=== PATIENT | female | born 1955 | race Caucasian/White ===

== ENCOUNTER → 2017-02-25 | Outpatient (CLI) | payer OTHER ==
[~2017-02-25] MED LIST: ALBU1AER9 INH; CALC500C3 PO; CARV12.5 PO; CMD/25 PO; CMD5 PO; CYAN500T PO; ERGO500037 PO; FERR325T PO; HYDR-3983 PO; IMD/2 PO; INSUINJ14 SC; INSUINJ4 SQ; LEVO200T PO; NRN300 PO; NTRGSL/4 UT; OMEP20CA59 PO; OXYB15TA12 PO; TELM80TA4 PO; VENL150T33 PO
[2017-02-25 12:38] LABS: ESTIMATED AVERAGE GLUCOSE 183 mg/dl; HA1C FLAG Normal (Normal)
[2017-02-25 12:58] LABS: ALT/SGPT 25 U/L (12-78); BLOOD UREA NITROGEN 35 mg/dl (7-18); BUN/CREATININE RATIO 15.7 (10-20); CALCIUM 8.4 mg/dl (8.5-10.1); CARBON DIOXIDE 26 mmol/L (21-32); CHLORIDE 108 mmol/L (98-107); GLUCOSE 62 mg/dl (70-99); POTASSIUM 3.5 mmol/L (3.5-5.1); SODIUM 144 mmol/L (136-145)
[2017-02-25 13:09] LABS: ALB/GLOB RATIO 0.8 (0.9-2); ALKALINE PHOSPHATASE 115 U/L (45-117); AST/SGOT 12 U/L (15-37)
[2017-02-25 14:29] LABS: LYME DISEASE AB IGG NEG (NEG)
[2017-02-25 14:33] LABS: LYME DISEASE AB IGM NEG (NEG)
== END | disposition home or self-care (01) ==
LOC: C.LABBFT 10:59
PROVIDERS: ATTEND Nurse Practitioner
DX: E78.5 Hyperlipidemia, unspecified (principal); E11.9 Type 2 diabetes mellitus without complications; R53.83 Other fatigue

== ENCOUNTER → 2017-03-18 | Outpatient (CLI) | payer OTHER ==
--- NOTE | 2017-03-18 08:05 | DIAGNOSTIC IMAGING REPORT ---
EXAMINATION: RENAL ULTRASOUND CLINICAL HISTORY: Hypertension, chronic kidney disease. Vitamin D deficiency. COMPARISON STUDY: 12/27/2013 FINDINGS: The right kidney measures 10.0 cm. The left kidney measures 7.6 cm. There is no evidence of hydronephrosis. There is upper pole right renal cortical scarring. The left kidney demonstrates renal cortical thinning. No bladder abnormalities are visualized. Bilateral ureteral jets were visualized. IMPRESSION : 1. Progressive left renal atrophy with progressive cortical thinning 2. Upper pole right renal cortical scarring 3. No evidence of hydronephrosis Electronically signed by: Radu Ortega M.D. 03/18/2017 8:03 AM Dictated Date/Time: 03/18/2017 8:01 AM
== END | disposition home or self-care (01) ==
LOC: C.ULTR 07:28
PROVIDERS: ATTEND Internal Medicine Nephrology
DX: E11.9 Type 2 diabetes mellitus without complications (principal); E55.9 Vitamin D deficiency, unspecified; D64.9 Anemia, unspecified; I10 Essential (primary) hypertension; N18.3 Chronic kidney disease, stage 3 (moderate); R80.9 Proteinuria, unspecified

== ENCOUNTER → 2017-04-01 | Outpatient (CLI) | payer OTHER ==
[2017-04-01 17:35] LABS: HEMATOCRIT 34.2 % (37-47); MEAN CELL VOLUME 86.4 fL (80-100); MEAN CORPUSCULAR HEMOGLOBIN 25.5 pg (25-34); MEAN CORPUSCULAR HGB CONC 29.5 g/dl (32-36); MEAN PLATELET VOLUME 9.4 fL (7.4-10.4); PLATELET COUNT 439 K/uL (130-400); RED BLOOD COUNT 3.96 M/uL (4.2-5.4); WHITE BLOOD COUNT 8.38 K/uL (4.8-10.8)
[2017-04-01 17:43] LABS: URINE APPEARANCE CLOUDY (CLEAR); URINE BILIRUBIN NEG (NEG); URINE COLOR YELLOW; URINE EPITHELIAL CELL AUTO >30 /lpf (0-5); URINE NITRITE POS (NEG); URINE PH 5.5 (4.5-7.5); URINE SPECIFIC GRAVITY 1.024 (1.000-1.030); UROBILINOGEN NEG (NEG)
[2017-04-01 17:48] LABS: MANUAL MICROSCOPIC REQUIRED? NO; REVIEW REQ? YES
[2017-04-01 17:58] LABS: BLOOD UREA NITROGEN 39 mg/dl (7-18); BUN/CREATININE RATIO 17.9 (10-20); CALCIUM 8.2 mg/dl (8.5-10.1); CARBON DIOXIDE 26 mmol/L (21-32); CHLORIDE 110 mmol/L (98-107); GLUCOSE 163 mg/dl (70-99); PHOSPHORUS 3.9 mg/dl (2.5-4.9); POTASSIUM 4.5 mmol/L (3.5-5.1); SODIUM 143 mmol/L (136-145)
[2017-04-01 18:07] LABS: URINE PROTIEN/CREAT RATIO 2.1 (0-0.2); URINE TOTAL PROTEIN 254.6 mg/dl (0-11.9)
== END | disposition home or self-care (01) ==
LOC: C.LABBFT 11:48
PROVIDERS: ATTEND Internal Medicine Nephrology
DX: I12.9 Hypertensive chronic kidney disease with stage 1 through stage 4 chronic kidney disease, or unspecified chronic kidney disease (principal); E55.9 Vitamin D deficiency, unspecified; E11.9 Type 2 diabetes mellitus without complications; D64.9 Anemia, unspecified; R80.9 Proteinuria, unspecified; N18.3 Chronic kidney disease, stage 3 (moderate)

== ENCOUNTER → 2017-04-26 | Outpatient (CLI) | payer OTHER ==
[2017-04-26 12:21] LABS: BASO % 1.2 %; BASO ABS # 0.11 K/uL (0-0.2); EOS % 1.8 %; HEMATOCRIT 35.2 % (37-47); IG% 0.2 %; LYMPH % 22.2 %; LYMPH ABS # 1.97 K/uL (1.2-3.4); MEAN CELL VOLUME 82.8 fL (80-100); MEAN CORPUSCULAR HEMOGLOBIN 25.2 pg (25-34); MEAN CORPUSCULAR HGB CONC 30.4 g/dl (32-36); MEAN PLATELET VOLUME 9.9 fL (7.4-10.4); MONO % 5.4 %; NEUT % 69.2 %; PLATELET COUNT 371 K/uL (130-400); RED BLOOD COUNT 4.25 M/uL (4.2-5.4); WHITE BLOOD COUNT 8.89 K/uL (4.8-10.8)
[2017-04-26 12:34] LABS: BLOOD UREA NITROGEN 44 mg/dl (7-18); BUN/CREATININE RATIO 16.8 (10-20); CALCIUM 8.4 mg/dl (8.5-10.1); CARBON DIOXIDE 27 mmol/L (21-32); CHLORIDE 104 mmol/L (98-107); GLUCOSE 171 mg/dl (70-99); MAGNESIUM 2.3 mg/dl (1.8-2.4); POTASSIUM 4.1 mmol/L (3.5-5.1); SODIUM 140 mmol/L (136-145)
[2017-04-26 12:39] LABS: FERRITIN 12.5 ng/ml (8.0-388.0); PHOSPHORUS 4.8 mg/dl (2.5-4.9); TOTAL IRON BINDING CAPACITY 433 mcg/dl (250-450)
[2017-04-26 13:28] LABS: ANISOCYTOSIS PRESENT; COMPLETE YES; ECHINOCYTES 1+
== END | disposition home or self-care (01) ==
LOC: C.LABBFT 09:31
PROVIDERS: ATTEND Physician Assistant Medical
DX: R06.09 Other forms of dyspnea (principal); D64.9 Anemia, unspecified

== ENCOUNTER → 2017-04-27 | Outpatient (CLI) | payer OTHER ==
--- NOTE | 2017-04-27 10:52 | DIAGNOSTIC IMAGING REPORT ---
CHEST 2 VIEWS ROUTINE CLINICAL HISTORY: 61 years-old Female presenting with DYSPNEA ON EXERTION. TECHNIQUE: PA and lateral views of the chest were obtained. COMPARISON: 02/27/2016. FINDINGS: Atherosclerosis of aortic arch. Cardiac silhouette mildly enlarged. Apparent left basilar opacity, stable slightly increased from prior. No large pleural effusion or pneumothorax. Surgical clips project over the bilateral axillary. Osseous structures normal. Upper abdomen normal. IMPRESSION: 1. Apparent left basilar opacity may relate to prominent pericardial fat pad, however, the appearance is slightly more prominent than on prior exam. 2. Mild cardiomegaly. Electronically signed by: Sami Anthony M.D. 04/27/2017 10:50 AM Dictated Date/Time: 04/27/2017 10:46 AM
== END | disposition home or self-care (01) ==
LOC: C.RAD1850 10:27
PROVIDERS: ATTEND Internal Medicine
DX: R06.09 Other forms of dyspnea (principal); R91.8 Other nonspecific abnormal finding of lung field

== ENCOUNTER → 2017-05-03 | Outpatient (CLI) | payer OTHER ==
[2017-05-03 17:59] LABS: BLOOD UREA NITROGEN 38 mg/dl (7-18); BUN/CREATININE RATIO 15.9 (10-20); CALCIUM 7.9 mg/dl (8.5-10.1); CARBON DIOXIDE 25 mmol/L (21-32); CHLORIDE 110 mmol/L (98-107); CREATININE 2.37 mg/dl (0.60-1.20); GLUCOSE 126 mg/dl (70-99); POTASSIUM 4.2 mmol/L (3.5-5.1); SODIUM 143 mmol/L (136-145)
[2017-05-03 18:00] LABS: PHOSPHORUS 3.8 mg/dl (2.5-4.9)
== END | disposition home or self-care (01) ==
LOC: C.LABBFT 12:49
PROVIDERS: ATTEND Internal Medicine
DX: R06.09 Other forms of dyspnea (principal)

== ENCOUNTER → 2017-05-06 | Outpatient (CLI) | payer OTHER ==
[~2017-05-06] MED LIST changes: +ADVIN50/60 INH; +ALBINS/ INH; +ASCA500 PO; +ASPI81TA28 PO; +CLOP1TAB15 PO; +DOCU100C31 PO; +EZET10TA63 PO; +FOLI1TAB7 PO; +INSDGIPEN SC; +ISOS30TA35 PO; +LOSA100T65 PO; +MULT-506 PO; +NVLGI/PEN SQ; +OXYB15TA PO; +PANT40TA PO; +TORS20TA2 PO; +TRAMTAB5 PO; +VNTHFA/IN INH
--- NOTE | 2017-05-06 08:23 | DIAGNOSTIC IMAGING REPORT ---
(CHEST) THORAX WITHOUT CLINICAL HISTORY: R93.8 Abnormal chest x-ray-, left basilar opacity. SHORTNESS OF BREATH COMPARISON STUDY: Conventional radiographic study dated 04/27/2017 CT DOSE: 1013.81 mGy.cm TECHNIQUE: CT of the thorax was performed from the thoracic inlet to the lung bases. Images are reviewed in the axial, sagittal, and coronal planes. IV contrast was not administered for this examination. A dose lowering technique was utilized adhering to the principles of ALARA. FINDINGS: Thyroid: Imaged portions of the thyroid gland are normal in appearance. Thoracic aorta: The thoracic aorta is normal in course and caliber, noting standard 3 vessel arch anatomy. Heart: The heart is borderline enlarged. There is no pericardial effusion. Lungs and pleural spaces: There are small bilateral pleural effusions. There is a calcified granuloma within the left lower lobe. There are lingular atelectatic changes. There is subtle subpleural septal edema. There is no lobar consolidation. There is a 2.5 mm right middle lobe pulmonary nodule as visualized in image #[id number]. Mediastinum: There are mildly enlarged mediastinal lymph nodes. Subcarinal lymph nodes demonstrate calcifications. Mimi: There are calcified hilar nodes. Axilla: Postsurgical changes are present within both axilla. There is no pathologic adenopathy. Upper abdomen: There is a large ventral hernia containing portions of stomach and colon area Skeletal structures: There are no lytic or blastic osseous lesions. IMPRESSION: 1. Bilateral pleural effusions and mild subpleural septal edema. 2. Lingular atelectasis 3. No evidence of lobar consolidation 4. Mild mediastinal adenopathy 5. Large bowel containing ventral hernia Electronically signed by: Radu Ortega M.D. 05/06/2017 8:22 AM Dictated Date/Time: 05/06/2017 8:16 AM
== END | disposition home or self-care (01) ==
LOC: C.CTS 08:01
PROVIDERS: ATTEND Internal Medicine
DX: R93.8 Abnormal findings on diagnostic imaging of other specified body structures (principal); J90 Pleural effusion, not elsewhere classified; J98.11 Atelectasis; R59.0 Localized enlarged lymph nodes; K43.9 Ventral hernia without obstruction or gangrene

== ENCOUNTER 2017-05-09 02:29 | Inpatient (IN) | payer OTHER ==
[~2017-05-09] VITALS: Ht 160 cm; Wt 118.7 kg
[2017-05-09] VITALS (7 sets, daily range): BP systolic 146–182; BP diastolic 77–124; PULSE 63–99; TEMP 36.4–36.8; O2SAT 93–100; BMI 46.5
[~2017-05-09 02:29] MED LIST changes: -ADVIN50/60 INH; -ALBINS/ INH; -ASCA500 PO; -ASPI81TA28 PO; -CLOP1TAB15 PO; -DOCU100C31 PO; -EZET10TA63 PO; -FOLI1TAB7 PO; -INSDGIPEN SC; -ISOS30TA35 PO; -LOSA100T65 PO; -MULT-506 PO; -NVLGI/PEN SQ; -OXYB15TA PO; -PANT40TA PO; -TORS20TA2 PO; -TRAMTAB5 PO; -VNTHFA/IN INH
[2017-05-09] MEDS ORDERED: ALBUT/IPRATROP 3MG/0.5MG NEB 3 ML VIAL INH STA (03:09)
[2017-05-09] MEDS ORDERED: FENTANYL CITRATE INJ 50 MCG/1 ML 2 ML VIAL IV STA (03:09)
[2017-05-09 03:24] LABS: BASO % 0.9 %; BASO ABS # 0.09 K/uL (0-0.2); COMPLETE YES; EOS % 0.5 %; HEMATOCRIT 36.7 % (37-47); IG% 0.4 %; LYMPH % 13.3 %; LYMPH ABS # 1.31 K/uL (1.2-3.4); MEAN CELL VOLUME 81.2 fL (80-100); MEAN CORPUSCULAR HEMOGLOBIN 24.1 pg (25-34); MEAN CORPUSCULAR HGB CONC 29.7 g/dl (32-36); MEAN PLATELET VOLUME 10.2 fL (7.4-10.4); MONO % 4.4 %; NEUT % 80.5 %; PLATELET COUNT 380 K/uL (130-400); RED BLOOD COUNT 4.52 M/uL (4.2-5.4); WHITE BLOOD COUNT 9.88 K/uL (4.8-10.8)
[2017-05-09 03:31] LABS: INR 1.3 (0.9-1.1); PROTHROMBIN TIME (PATIENT) 13.9 SECONDS (9.0-12.0)
[2017-05-09 03:43] LABS: ALB/GLOB RATIO 0.9 (0.9-2); ALKALINE PHOSPHATASE 119 U/L (45-117); ALT/SGPT 22 U/L (12-78); AST/SGOT 15 U/L (15-37); BLOOD UREA NITROGEN 29 mg/dl (7-18); CALCIUM 8.7 mg/dl (8.5-10.1); CARBON DIOXIDE 22 mmol/L (21-32); CHLORIDE 103 mmol/L (98-107); CREATININE 2.39 mg/dl (0.60-1.20); GLUCOSE 472 mg/dl (70-99); POTASSIUM 3.8 mmol/L (3.5-5.1); SODIUM 137 mmol/L (136-145)
[2017-05-09 03:55] LABS: URINE APPEARANCE CLOUDY (CLEAR); URINE BILIRUBIN NEG (NEG); URINE COLOR YELLOW; URINE EPITHELIAL CELL AUTO 20-30 /lpf (0-5); URINE NITRITE POS (NEG); URINE SPECIFIC GRAVITY 1.031 (1.000-1.030); UROBILINOGEN NEG (NEG)
[2017-05-09 03:56] LABS: BETA-HYDROXYBUTYRATE 4.73 mg/dL (0.2-2.81)
[2017-05-09 03:56] LABS: MANUAL MICROSCOPIC REQUIRED? NO; REVIEW REQ? NO
[2017-05-09] MEDS ORDERED: FOLI1TAB7 PO (04:43)
[2017-05-09] MEDS ORDERED: INSDGIPEN SC (04:44)
[2017-05-09] MEDS ORDERED: ISOS30TA35 PO (04:44)
[2017-05-09] MEDS ORDERED: ASPI81TA28 PO (04:45)
[2017-05-09] MEDS ORDERED: LOSA100T65 PO (04:45)
[2017-05-09] MEDS ORDERED: EZET10TA63 PO (04:48)
[2017-05-09] MEDS ORDERED: ADVIN50/60 INH (04:48)
[2017-05-09] MEDS ORDERED: CLOP1TAB15 PO (04:48)
[2017-05-09] MEDS ORDERED: DOCU100C31 PO (04:48)
[2017-05-09] MEDS ORDERED: ALBINS/ INH (04:48)
[2017-05-09] MEDS ORDERED: TORS20TA2 PO (04:54)
[2017-05-09] MEDS ORDERED: ASCA500 PO (04:54)
[2017-05-09] MEDS ORDERED: PANT40TA PO (04:54)
[2017-05-09] MEDS ORDERED: OXYB15TA PO (04:54)
[2017-05-09] MEDS ORDERED: VNTHFA/IN INH (04:56)
[2017-05-09] MEDS ORDERED: MULT-506 PO (04:58)
[2017-05-09] MEDS ORDERED: NVLGI/PEN SQ (04:58)
[2017-05-09] MEDS ORDERED: TRAMTAB5 PO (04:59)
[2017-05-09] MEDS ORDERED: CEFTRIAXONE SOD INJ 1 GM ADDVIAL IV STA (05:18)
--- NOTE | 2017-05-09 05:33 | EMERGENCY ROOM VISIT NOTE ---
History First contact with patient: 02:59 Chief Complaint: CHEST PAIN Stated Complaint: CHEST PAIN, CAN'T BREATHE,SOB Nursing Triage Summary: Pt c/o increased shortness of breath over the past week, seen for outpatient CT on wednesday for pleurisy. Pt c/o bilateral chest pain below ribs with shortness of breath. Pt starting to have worsening shortness of breath this evening, having trouble completing sentences. Pt states she can only walk a couple steps at a time. Has had increased swelling to feet starting today as well. History of Present Illness The patient is a 62 year old female who presents to the Emergency Room with complaints of increasing shortness of breath over the past few days it got significantly worse today. She states the SOB is much worse with minimal exertion, and she cannot go more than a few steps without having to stop and rest. She also complains of bilateral chest pain, which she states she has chronically, but it has been worse than normal. She has been having increased edema in her lower legs over the past week or so. She states she was recently placed on Torsemide for fluid management. Patient states that she has a history of CHF, chronic pleuritic chest pain, KS in the past, with 2 stents placed in July of this year, hypertension and diabetes. She states that she uses CPAP at night when she sleeps, but does not use any oxygen normally. She denies any fevers/chills, headache, dizziness or passing out, cough or sore throat, abdominal pain, nausea/vomiting, urinary symptoms, rash. Review of Systems A complete 10 point review of systems was reviewed with the patient with pertinent positives and negatives as per history of present illness. All else were negative. Past Medical/Surgical History Medical Problems: (1) CHF exacerbation (2) CHRONIC KIDNEY DISEASE, UNSPECIFIED (3) DIAB TONEY WO COMPL, TYPE II OR UNSPEC TYPE, UNCONTROLLED (4) History of KS (myocardial infarction) (5) Hyperglycemia (6) HYPERTENSION NOS (7) Spondylolisthesis, lumbar region (8) Substernal precordial chest pain (9) UTI (urinary tract infection) Family History Diabetes mellitus FH: cancer FH: gallbladder disease Hypertension Kidney disease Kidney stones Social History Smoking Status: Never Smoker Alcohol Use: none Drug Use: none Marital Status: Housing Status: lives with family Occupation Status: retired Current/Historical Medications Scheduled Ascorbic Acid (Vitamin C), 500 MG PO DAILY Aspirin (Aspirin Ec), 81 MG PO DAILY Carvedilol (Coreg), 12.5 MG PO BID Clopidogrel (Plavix), 75 MG PO DAILY Docusate Sodium (Docusate Sodium), 1 CAP PO BID Ergocalciferol (Vitamin D 22855 Unit), 50,000 UNIT PO WK Ezetimibe (Zetia), 10 MG PO DAILY Ferrous Sulfate (Ferrous Sulfate), 325 MG PO HS Fluticasone Prop/Salmeterol (Advair Diskus 500/50 60 Dose), 1 PUFF INH BID Folic Acid (Folvite), 1 MG PO DAILY Insulin Aspart (Novolog Flexpen), 15 UNITS SQ TIDM Insulin Glargine (Lantus Solostar), 46 UNITS SC QPM Isosorbide Mononitrate Ext Rel (Imdur Ext Rel), 1 TAB PO QAM Levothyroxine Sodium (Synthroid), 200 MCG PO 6XWK Losartan Potassium (Cozaar), 100 MG PO QAM Multivitamin (Multivitamin), 1 TAB PO DAILY Oxybutynin Chloride (Oxybutynin Chloride Er), 1 TAB PO DAILY Pantoprazole (Protonix), 40 MG PO DAILY Torsemide (Demadex), 20 MG PO Q2D Venlafaxine Hcl (Venlafaxine Hcl Er), 150 MG PO QAM Scheduled PRN Albuterol Hfa (Ventolin Hfa), 1-2 PUFFS INH Q4 PRN for SOB/Wheezing Albuterol Sulf (Proventil 0.083% 2.5MG/3ML), 2.5 MG INH Q4 PRN for SOB/Wheezing Calcium Carbonate (Tums), 2 TAB PO UD PRN for Heartburn Nitroglycerin (Nitrostat), 0.4 MG UT UD PRN for Chest Pain Tramadol/Acetaminophen (Ultracet), 1 TAB PO q4-6hrs PRN for Pain Physical Exam Vital Signs Date Time Temp Pulse Resp B/P (MAP) Pulse Ox O2 Delivery O2 Flow Rate FiO2 05/09/17 04:10 97 20 165/122 98 Room Air 05/09/17 03:41 197/120 05/09/17 03:29 106 28 98 Nasal Cannula 3.0 05/09/17 03:26 98 Nasal Cannula 3.0 05/09/17 03:26 98 Nasal Cannula 3.0 05/09/17 03:01 99 Room Air 05/09/17 02:59 102 27 98 05/09/17 02:41 106 05/09/17 02:39 105 33 221/129 94 Room Air 05/09/17 02:39 221/129 Physical Exam CONSTITUTIONAL: No acute distress, but does appear uncomfortable. She is able to speak in full sentences. Well appearing and well nourished. Alert and oriented X 4 with normal affect. HEENT: Normocephalic, atraumatic. Pupils equal, round and reactive to light, EOMI. TMs normal. Pharynx normal. Tacky mucous membranes NECK: Supple, full active range of motion without discomfort. RESPIRATORY: Markedly diminished breath sounds bilaterally, with faint crackles in the bases. No wheezes, rhonchi, or stridor heard. Mildly tachypneic, but no significant increased work of breathing or retractions noted. Equal expansion bilaterally. CARDIOVASCULAR: Tachycardic. Regular rhythm with no murmurs, rubs or gallops. Normal peripheral perfusion. Bilateral lower extremity 2-3 + pitting edema. GASTROINTESTINAL: Soft, nontender, nondistended. Bowel sounds present in all quadrants. MUSCULOSKELETAL: Full range of motion of all joints without discomfort. There is tenderness of the posterior right calf and knee to palpation. INTEGUMENTARY: No rash or other significant dermatologic conditions noted. NEUROLOGIC: Cranial nerves II-XII grossly intact. No focal neurologic deficits noted. Medical Decision & Procedures ER Provider Diagnostic Interpretation: CHEST ONE VIEW PORTABLE CLINICAL HISTORY: Respiratory distress. Decreasing chest pain. COMPARISON STUDY: 04/27/2017 FINDINGS: The heart is the upper limits of normal in size. There is subtle interstitial thickening/edema. There are by basilar opacities which may relate to overlying soft tissue given the patient's body habitus. There is no lobar consolidation. IMPRESSION: 1. Subtle interstitial thickening/edema 2. Bibasilar opacities which may be secondary to overlying breast tissue given the portable nature of the study and patient's body habitus. Laboratory Results Test 05/09/17 02:50 05/09/17 03:42 Immature Granulocyte % (Auto) 0.4 % White Blood Count 9.88 K/uL (4.8-10.8) Red Blood Count 4.52 M/uL (4.2-5.4) Hemoglobin 10.9 g/dL (12.0-16.0) Hematocrit 36.7 % (37-47) Mean Corpuscular Volume 81.2 fL (80-100) Mean Corpuscular Hemoglobin 24.1 pg (25-34) Mean Corpuscular Hemoglobin Concent 29.7 g/dl (32-36) Platelet Count 380 K/uL (130-400) Mean Platelet Volume 10.2 fL (7.4-10.4) Neutrophils (%) (Auto) 80.5 % Lymphocytes (%) (Auto) 13.3 % Monocytes (%) (Auto) 4.4 % Eosinophils (%) (Auto) 0.5 % Basophils (%) (Auto) 0.9 % Neutrophils # (Auto) 7.96 K/uL (1.4-6.5) Lymphocytes # (Auto) 1.31 K/uL (1.2-3.4) Monocytes # (Auto) 0.43 K/uL (0.11-0.59) Eosinophils # (Auto) 0.05 K/uL (0-0.5) Basophils # (Auto) 0.09 K/uL (0-0.2) Immature Granulocyte # (Auto) 0.04 K/uL (0.00-0.02) Prothrombin Time 13.9 SECONDS (9.0-12.0) Prothromb Time International Ratio 1.3 (0.9-1.1) Activated Partial Thromboplast Time 26.3 SECONDS (21.0-31.0) Partial Thromboplastin Ratio 1.0 Total Bilirubin 1.3 mg/dl (0.2-1) Aspartate Amino Transf (AST/SGOT) 15 U/L (15-37) Alanine Aminotransferase (ALT/SGPT) 22 U/L (12-78) Alkaline Phosphatase 119 U/L (45-117) Pro-B-Type Natriuretic Peptide > 42759 pg/ml (0-900) Total Protein 7.2 gm/dl (6.4-8.2) Albumin 3.4 gm/dl (3.4-5.0) Globulin 3.8 gm/dl (2.5-4.0) Albumin/Globulin Ratio 0.9 (0.9-2) Urine Color YELLOW Urine Appearance CLOUDY (CLEAR) Urine pH 5.0 (4.5-7.5) Urine Specific Trevor 1.031 (1.000-1.030) Urine Protein 3+ (NEG) Urine Glucose (UA) 3+ (NEG) Urine Ketones TRACE (NEG) Urine Occult Blood 2+ (NEG) Urine Nitrite POS (NEG) Urine Bilirubin NEG (NEG) Urine Urobilinogen NEG (NEG) Urine Leukocyte Esterase SMALL (NEG) Urine WBC (Auto) >30 /hpf (0-5) Urine RBC (Auto) 10-30 /hpf (0-4) Urine Hyaline Casts (Auto) 1-5 /lpf (0-5) Urine Epithelial Cells (Auto) 20-30 /lpf (0-5) Urine Bacteria (Auto) 1+ (NEG) Medications Administered Medications (Trade) Dose Ordered Sig/Mahad Route Start Time Stop Time Status Last Admin Dose Admin Albuterol/ Ipratropium (Duoneb) 3 ml NOW STAT INH 05/09/17 03:09 05/09/17 03:13 DC 05/09/17 03:21 3 ML Fentanyl Citrate (Fentanyl Inj) 50 mcg NOW STAT IV 05/09/17 03:09 05/09/17 03:13 DC 05/09/17 03:21 50 MCG Ceftriaxone Sodium (Rocephin Inj) 1 gm NOW STAT IV 05/09/17 05:18 05/09/17 05:19 DC 05/09/17 05:29 1 GM Furosemide 20 mg/ Syringe 2 ml @ 4 mls/min NOW STAT IV 05/09/17 05:34 05/09/17 05:36 DC 05/09/17 05:49 4 MLS/MIN Potassium Chloride 10 meq/ Prmx 100 ml @ 100 mls/hr Q1H IV 05/09/17 05:45 05/09/17 07:44 DC 05/09/17 08:10 100 MLS/HR Insulin Human Regular 10 units/ Syringe 10 ml @ 30 mls/min TODAY@0545 IV 05/09/17 05:45 05/09/17 05:46 DC 05/09/17 05:47 30 MLS/MIN Acetaminophen (Tylenol Tab) 650 mg Q4H PRN PO 05/09/17 05:45 06/08/17 05:44 05/09/17 23:25 650 MG Ondansetron HCl (Zofran Inj) 4 mg Q6H PRN IV 05/09/17 05:45 06/08/17 05:44 05/09/17 12:35 4 MG ECG Indication: chest pain, SOB/dyspnea Rate (beats per minute): 14 Rhythm: sinus tachycardia Findings: no acute ischemic change, no ectopy Medical Decision CC: Patient presenting with complaint of shortness of breath Interpretation of Labs: No leukocytosis, anemia (at baseline), no significant electrolyte abnormalities, renal function at baseline. Significant elevated pro -BNP. Initial troponin negative. UA consistent with a UTI, culture pending. Differential Diagnosis: Includes, but not limited to pneumonia, bronchitis, viral respiratory illness, PE, DVT, CHF exacerbation, COPD exacerbation, pleural effusion, pneumothorax, ACS, aortic dissection, pericarditis, myocarditis, pleurisy, among others. Medication Reconciliation: I attest that I have personally reviewed the patient' s current medication list. Vital signs review: I reviewed the patient's vital signs and interpret them as follows: T: Afebrile; BP: Markedly Hypertensive; HR: Tachycardic; RR: Tachypneic; Pulse Ox: Initially hypoxic, placed on 3 L nasal cannula. Summary: Patient was evaluated at bedside, history of physical exam performed. Patient is alert and oriented, in no acute distress, but does appear uncomfortable and tachypneic. Lungs are significantly diminished bilaterally with fine crackles heard in the bases. Bilateral lower extremities with 2-3+ pitting edema, right posterior knee and calf is tender to palpation. Patient also noted to be tachycardic and hypertensive. EKG reviewed at bedside, shows sinus tachycardia with no obvious ischemic changes. Orders were placed at bedside for labs, cath UA, chest x-ray to evaluate for CHF exacerbation, bilateral venous duplex to evaluate for DVT. PE is a significant consideration for this patient, given her pleuritic chest pain, shortness breath, tachycardia, however she does not tolerate laying flat well and I believe a CT at this point would not be most beneficial to the patient at this time. I also think that her symptoms are more likely attributable to congestive heart failure exacerbation. We will perform a venous duplex to evaluate for DVT in the interim. Patient discussed with Dr. Florez, who agrees with my assessment and plan. Labs reviewed as above, notable for significant only elevated pro-BNP. Initial troponin is negative. She appears to have a UTI. She is markedly hyperglycemic with slightly elevated serum ketones. I suspect her shortness of breath is related to a CHF exacerbation given her chest x-ray findings and elevated BNP. IV lasix ordered. Would recommend continuing to trend troponins given her cardiac history. Treating her UTI with IV Rocephin. I spoke on the phone with Dr. Nash, hospitalist, who agrees to admit the patient for further management. Patient reassessed multiple times throughout ED stay, she is feeling somewhat better. I updated the patient on all results and plan for admission to the hospital, she verbalized understanding and is agreeable to this plan. Patient was admitted to the hospital in stable condition. Medication Reconcilliation Current Medication List: was personally reviewed by me Blood Pressure Screening Patient's blood pressure: Elevated blood pressure Impression Primary Impression: CHF exacerbation Additional Impressions: UTI (urinary tract infection) Hyperglycemia Departure Information Dispostion Admitted as an inpatient Condition FAIR Referrals Judd Baez M.D. (PCP) Patient Instructions [facility] Problem Qualifiers Primary Impression: CHF exacerbation Congestive heart failure type: unspecified congestive heart failure type Qualified Codes: I50.9 - Heart failure, unspecified Additional Impressions: UTI (urinary tract infection) Urinary tract infection type: acute cystitis Hematuria presence: with hematuria Qualified Codes: N30.01 - Acute cystitis with hematuria
[2017-05-09] MEDS ORDERED: FUROSEMIDE INJ 20 MG in SYRINGE 0 ML IV STA (05:34)
[2017-05-09] MEDS ORDERED: FUROSEMIDE 40 MG/4 ML VIAL ONE (05:43)
[2017-05-09] MEDS ORDERED: NovoLIN-R INSULIN PER UNIT CHARGE ONE (05:44)
[2017-05-09] MEDS ORDERED: ONDANSETRON INJ 2 MG/ML 2 ML VIAL IV PRN (05:45)
[2017-05-09] MEDS ORDERED: FUROSEMIDE INJ 80 MG in SYRINGE 0 ML IV ONE (05:45)
[2017-05-09] MEDS ORDERED: MAGNESIUM HYDROXIDE SUSP 30 ML UDC PO PRN (05:45)
[2017-05-09] MEDS ORDERED: INSULIN REGULAR 10 UNITS in SYRINGE 9.9 ML IV SCH (05:45)
[2017-05-09] MEDS ORDERED: NITROGLYCERIN 0.4 MG SL PER TAB CHARGE SL PRN (05:45)
[2017-05-09] MEDS ORDERED: POLYETHYLENE (MIRALAX) 17 GM PACK PO PRN (05:45)
[2017-05-09] MEDS ORDERED: NITROGLYCERIN 0.4 MG SL PER TAB CHARGE UT PRN (05:45)
[2017-05-09] MEDS ORDERED: ALBUTEROL HFA 8 GM INHALER INH PRN (05:45)
[2017-05-09] MEDS ORDERED: ALBUTEROL 0.083% NEBU SOLN 3 ML VIAL INH PRN (05:45)
[2017-05-09] MEDS ORDERED: ALUMINUM/MAGNESIUM/SIMETH (MAALOX MAX) 30 ML UDC PO PRN (05:45)
[2017-05-09] MEDS ORDERED: INFLUENZA VIRUS QUAD VACCINE 0.5 ML SYR IM. ONE (05:45)
[2017-05-09] MEDS ORDERED: POTASSIUM CHLORIDE 10 MEQ / 100ML WTR IV ONE (06:03)
--- NOTE | 2017-05-09 06:07 | History and Physical ---
History & Physical Date & Time of Service: May 09, 2017 at 05:58 Chief Complaint: Chest Pain, Can't Breathe,Sob Primary Care Physician: Judd Baez M.D. History of Present Illness Source: patient, hospital records This is a 62 y/o F with a h/o CHF, CAD, MD s/p Stents, HLD, HTN, IDDM, ENE who presents with worsening shortness of breath and chest pain x 1-2 weeks. She has recently seen her presbyterian clergy who switched her diuretic to torsemide. She reports that she has had worsening shortness of breath over the last several months but noted difficulty walking 5 steps by yesterday evening. She also reports a 20 lb weight gain over 2 weeks. She was also seen by her PCP earlier in the week who ordered a Chest CT which showed some effusions bilaterally She reports having not taken her insulin last night because she did not eat much Past Medical/Surgical History Medical Problems: (1) CHRONIC KIDNEY DISEASE, UNSPECIFIED Status: Chronic (2) DIAB TONEY WO COMPL, TYPE II OR UNSPEC TYPE, UNCONTROLLED Status: Chronic (3) HYPERTENSION NOS Status: Chronic Family History Diabetes mellitus FH: cancer FH: gallbladder disease Hypertension Kidney disease Kidney stones Social History Smoking Status: Never Smoker Smokeless Tobacco Use: No Alcohol Use: none Drug Use: none Marital Status: Housing status: lives with family Occupational Status: retired Immunizations History of Influenza Vaccine: No History of Tetanus Vaccine?: Yes Tetanus Immunization Date: Mar 30, 2004 History of Pneumococcal: No History of Hepatitis B Vaccine: No Multi-Drug Resistant Organisms History of MDRO: No Allergies Coded Allergies: Metformin (Verified Allergy, Unknown, per PCP records , 05/09/17) Iodinated Diagnostic Agents (Verified Adverse Reaction, Intermediate, HIVES, 05/09/17) TOLERATES WITH BENDADRYL Statins (Verified Adverse Reaction, Intermediate, Muscle weakness, ) Morphine (Verified Adverse Reaction, Mild, ITCHING, 05/09/17) Home Medications Scheduled Ascorbic Acid (Vitamin C), 500 MG PO DAILY Aspirin (Aspirin Ec), 81 MG PO DAILY Carvedilol (Coreg), 12.5 MG PO BID Clopidogrel (Plavix), 75 MG PO DAILY Docusate Sodium (Docusate Sodium), 1 CAP PO BID Ergocalciferol (Vitamin D 66484 Unit), 50,000 UNIT PO WK Ezetimibe (Zetia), 10 MG PO DAILY Ferrous Sulfate (Ferrous Sulfate), 325 MG PO HS Fluticasone Prop/Salmeterol (Advair Diskus 500/50 60 Dose), 1 PUFF INH BID Folic Acid (Folvite), 1 MG PO DAILY Insulin Aspart (Novolog Flexpen), 15 UNITS SQ TIDM Insulin Glargine (Lantus Solostar), 46 UNITS SC QPM Isosorbide Mononitrate Ext Rel (Imdur Ext Rel), 1 TAB PO QAM Levothyroxine Sodium (Synthroid), 200 MCG PO 6XWK Losartan Potassium (Cozaar), 100 MG PO QAM Multivitamin (Multivitamin), 1 TAB PO DAILY Oxybutynin Chloride (Oxybutynin Chloride Er), 1 TAB PO DAILY Pantoprazole (Protonix), 40 MG PO DAILY Torsemide (Demadex), 20 MG PO Q2D Venlafaxine Hcl (Venlafaxine Hcl Er), 150 MG PO QAM Scheduled PRN Albuterol Hfa (Ventolin Hfa), 1-2 PUFFS INH Q4 PRN for SOB/Wheezing Albuterol Sulf (Proventil 0.083% 2.5MG/3ML), 2.5 MG INH Q4 PRN for SOB/Wheezing Calcium Carbonate (Tums), 2 TAB PO UD PRN for Heartburn Nitroglycerin (Nitrostat), 0.4 MG UT UD PRN for Chest Pain Tramadol/Acetaminophen (Ultracet), 1 TAB PO q4-6hrs PRN for Pain Review of Systems Constitutional: No fever, No chills, No sweats Eyes: No worsening of vision Respiratory: + shortness of breath, + dyspnea on exertion, + dyspnea at rest Cardiovascular: + chest pain, + orthopnea Abdomen: No pain, No nausea, No vomiting, No diarrhea Genitourinary - Female: No dysuria, No urinary frequency, No urinary urgency Physical Exam Vital Signs Date Time Temp Pulse Resp B/P (MAP) Pulse Ox O2 Delivery O2 Flow Rate FiO2 05/09/17 04:10 97 20 165/122 98 Room Air 05/09/17 03:41 197/120 05/09/17 03:29 106 28 98 Nasal Cannula 3.0 05/09/17 03:26 98 Nasal Cannula 3.0 05/09/17 03:26 98 Nasal Cannula 3.0 05/09/17 03:01 99 Room Air 05/09/17 02:59 102 27 98 05/09/17 02:41 106 05/09/17 02:39 105 33 221/129 94 Room Air 05/09/17 02:39 221/129 General Appearance: no apparent distress, + obese Eyes: PERRL, EOMI Neck: no adenopathy, + JVD Respiratory/Chest: no respiratory distress, no accessory muscle use, + decreased breath sounds, + crackles Cardiovascular: + tachycardia Abdomen/GI: normal bowel sounds, non tender, soft Extremities/Musculoskelatal: + pedal edema, + swelling Neurologic/Psych: mangle press catcher II-XII nml as tested, alert, normal mood/affect, oriented x 3 Diagnostics Laboratory Results Results Past 24 Hours Test 05/09/17 02:50 05/09/17 03:42 Range/Units White Blood Count 9.88 4.8-10.8 K/uL Red Blood Count 4.52 4.2-5.4 M/uL Hemoglobin 10.9 12.0-16.0 g/dL Hematocrit 36.7 37-47 % Mean Corpuscular Volume 81.2 80-100 fL Mean Corpuscular Hemoglobin 24.1 25-34 pg Mean Corpuscular Hemoglobin Concent 29.7 32-36 g/dl Platelet Count 380 130-400 K/uL Mean Platelet Volume 10.2 7.4-10.4 fL Neutrophils (%) (Auto) 80.5 % Lymphocytes (%) (Auto) 13.3 % Monocytes (%) (Auto) 4.4 % Eosinophils (%) (Auto) 0.5 % Basophils (%) (Auto) 0.9 % Neutrophils # (Auto) 7.96 1.4-6.5 K/uL Lymphocytes # (Auto) 1.31 1.2-3.4 K/uL Monocytes # (Auto) 0.43 0.11-0.59 K/uL Eosinophils # (Auto) 0.05 0-0.5 K/uL Basophils # (Auto) 0.09 0-0.2 K/uL RDW Standard Deviation 51.4 36.4-46.3 fL RDW Coefficient of Variation 17.2 11.5-14.5 % Immature Granulocyte % (Auto) 0.4 % Immature Granulocyte # (Auto) 0.04 0.00-0.02 K/uL Prothrombin Time 13.9 9.0-12.0 SECONDS Prothromb Time International Ratio 1.3 0.9-1.1 Activated Partial Thromboplast Time 26.3 21.0-31.0 SECONDS Partial Thromboplastin Ratio 1.0 Sodium Level 137 136-145 mmol/L Potassium Level 3.8 3.5-5.1 mmol/L Chloride Level 103 98-107 mmol/L Carbon Dioxide Level 22 21-32 mmol/L Anion Gap 12.0 3-11 mmol/L Blood Urea Nitrogen 29 7-18 mg/dl Creatinine 2.39 0.60-1.20 mg/dl Est Creatinine Clear Calc Drug Dose 30.5 ml/min Estimated GFR () 24.2 Estimated GFR (Non- 20.9 BUN/Creatinine Ratio 12.0 10-20 Random Glucose 472 70-99 mg/dl Calcium Level 8.7 8.5-10.1 mg/dl Total Bilirubin 1.3 0.2-1 mg/dl Aspartate Amino Transf (AST/SGOT) 15 15-37 U/L Alanine Aminotransferase (ALT/SGPT) 22 12-78 U/L Alkaline Phosphatase 119 45-117 U/L Troponin I 0.026 0-0.045 ng/ml Pro-B-Type Natriuretic Peptide > 78681 0-900 pg/ml Total Protein 7.2 6.4-8.2 gm/dl Albumin 3.4 3.4-5.0 gm/dl Globulin 3.8 2.5-4.0 gm/dl Albumin/Globulin Ratio 0.9 0.9-2 Beta-Hydroxybutyric Acid 4.73 0.2-2.81 mg/dL Urine Color YELLOW Urine Appearance CLOUDY CLEAR Urine pH 5.0 4.5-7.5 Urine Specific [place] 1.031 1.000-1.030 Urine Protein 3+ NEG Urine Glucose (UA) 3+ NEG Urine Ketones TRACE NEG Urine Occult Blood 2+ NEG Urine Nitrite POS NEG Urine Bilirubin NEG NEG Urine Urobilinogen NEG NEG Urine Leukocyte Esterase SMALL NEG Urine WBC (Auto) >30 0-5 /hpf Urine RBC (Auto) 10-30 0-4 /hpf Urine Hyaline Casts (Auto) 1-5 0-5 /lpf Urine Epithelial Cells (Auto) 20-30 0-5 /lpf Urine Bacteria (Auto) 1+ NEG Impression Assessment and Plan This is a 62 y/o F with shortness of breath concerning for CHF exacerbation CHF exacerbation: BNP> 279104 Xray evidence of pulmonary congestion, possible RLL consolidation Lasix 20 given in ED Daily lasix 40 hold torsemide po I/o, Fluid restriction, daily weights Serial troponins Echo ordered Last year had Ef of 45-50 with grade 2 diastolic dysfunction recheck BMP, monitor lytes Hyperglycemia with ketonemia, h/o of iddm - missed lantus given Regular insulin 10 units + potassium 20 Lantus 20 units BID, Takes 43 units at night usually ISS Accuchecks Recheck bmp in 4 hours UTI U/a positive urine culture ordered after dose of rocephin given in ED started on Levaquin for possible concurrent pulmonary consolidation CKD stage 4, mild acute component probably worsened by recent change in diuretics Avoid IV fluids for now with CHF Continue to monitor CAD s/p Stents Continue asa, Plavix, Zetia Hypothyroid Levothyroxine check TSH DVT: Heparin Attending Addendum: I have physically seen and examined this patient, have directed the resident's medical activities, and agree with the H&P as noted above with the following exceptions as noted. The patient is awake, alert and oriented 3, well-developed and well-nourished , normocephalic and atraumatic, lying in bed and in no acute distress. HEENT--PERRL, EOMI, mucous membranes and oropharynx dry. Neck--supple, no JVD or bruits, thyroid normal, trachea midline, no adenopathy. Heart--mildly tachycardic and regular, no murmurs, rubs or gallops. Lungs--decreased breath sounds bilaterally with crackles at the bases, no respiratory distress, no accessory muscle use. Abdomen--normal bowel sounds and soft, nontender and nondistended, no hernias or masses, and obese. Extremities--no cyanosis, clubbing. Bilateral 1+ pitting pedal Edema and lymphedema. There are good distal pulses b/l. Dermatologic--normal skin turgor, normal color, warm and dry, no abnormal lymph nodes, no rash. Neurologic--cranial nerves II through XII grossly intact. Rheumatologic--normal range of motion. Psychiatric--normal affect. Assessment and Plan: Acute diastolic CHF exacerbation/CAD/hypertension/coronary artery stents-- The patient will be admitted to telemetry for serial cardiac enzymes, cardiac rhythm monitoring and a 2-D echocardiogram with Dopplers. Give Lasix IV. Continue aspirin and Plavix. Serial chest x-rays. Follow BMP and magnesium level daily. Diabetes mellitus with hyperglycemia-- Patient reports her blood sugars usually in the 120-140 range. Since she did not yesterday she did not give herself her usual dosing of Lantus tonight. Given regular insulin 10 units IV. Does not look like she'll be having irregular intake within the next 24 hours or so. We'll therefore adjust Lantus dosing as noted above. Place on Accu-Cheks before meals and at bedtime with NovoLog coverage per scale. Frequent BMP checks. UTI-- Given ceftriaxone in the ED Place on Levaquin 500 milligrams IV daily. Follow urine culture and sensitivities. Chronic kidney disease-- Follow serial BMP and magnesium levels while treating as above. Level of Care Telemetry Advanced Directives Existing Advance Directive: No Existing Living Will: No Existing Power of Fitness Manager: No Resuscitation Status FULL RESUSCITATION VTE Prophylaxis VTE Risk Assessment Done? Y/N: Yes Risk Level: Moderate Given or contraindicated: Unfractionated heparin SQ Social Service Consult None Apply
[2017-05-09] MEDS: POTASSIUM CHLR 10 MEQ / WTR 10 MEQ in PREMIXED WATER 100 ML IV SCH ×2 (06:25→08:10)
[2017-05-09] MEDS ORDERED: GLUCOSE 10 TABS/TUBE PO PRN (07:00)
[2017-05-09] MEDS ORDERED: GLUCAGON FOR INJ 1 MG VIAL SQ PRN (07:00)
[2017-05-09] MEDS ORDERED: INSULIN HUMAN REGULAR SC SCH (07:00)
[2017-05-09] MEDS ORDERED: DEXTROSE 50% 50 ML SYR IV PRN (07:00)
[2017-05-09] MEDS ORDERED: GLUCOSE 40% GEL 15 GM TUBE PO PRN (07:00)
[2017-05-09] MEDS ORDERED: PERFLUTREN LIPID MICROSPHERE (DEFINITY) IV ONE (08:08)
[2017-05-09] MEDS: LEVOFLOXACIN / D5W 750 MG in PREMIXED IN D5W 150 ML IV SCH (08:19)
--- NOTE | 2017-05-09 08:39 | DIAGNOSTIC IMAGING REPORT ---
CHEST ONE VIEW PORTABLE CLINICAL HISTORY: Respiratory distress. Decreasing chest pain. COMPARISON STUDY: 04/27/2017 FINDINGS: The heart is the upper limits of normal in size. There is subtle interstitial thickening/edema. There are by basilar opacities which may relate to overlying soft tissue given the patient's body habitus. There is no lobar consolidation.[ IMPRESSION: 1. Subtle interstitial thickening/edema 2. Bibasilar opacities which may be secondary to overlying breast tissue given the portable nature of the study and patient's body habitus. Electronically signed by: Radu Ortega M.D. 05/09/2017 8:38 AM Dictated Date/Time: 05/09/2017 8:35 AM
--- NOTE | 2017-05-09 08:41 | DIAGNOSTIC IMAGING REPORT ---
ULTRASOUND VENOUS DOPPLER LWR EXT BILA CLINICAL HISTORY: Lower extremity pain and swelling COMPARISON STUDY: May 2009 FINDINGS: Real-time and color flow Doppler imaging were performed. Flow was seen within the femoral, popliteal and calf veins with no intraluminal thrombus demonstrated. The saphenous vein is patent. Both lower extremities demonstrate increased pulsatile waveforms. This suggests elevated right heart pressures. IMPRESSION: 1. No evidence of lower extremity DVT 2. Waveforms suggesting elevated right heart pressures Electronically signed by: Radu Ortega M.D. 05/09/2017 8:39 AM Dictated Date/Time: 05/09/2017 8:38 AM
[2017-05-09] MEDS ORDERED: OXYBUTYNIN CHLORIDE 5 MG TABCR PO SCH (09:00)
[2017-05-09] MEDS ORDERED: FUROSEMIDE INJ 40 MG in SYRINGE 0 ML IV SCH (09:00)
[2017-05-09] MEDS: FLUTICASONE/SALMETEROL (ADVAIR) 500/50 INH 14 PUFF INH SCH ×2 (09:25→21:11)
[2017-05-09] MEDS: DOCUSATE SODIUM 100 MG CAP PO SCH ×2 (09:26→19:19)
[2017-05-09] MEDS: FUROSEMIDE INJ 40 MG in SYRINGE 0 ML IV SCH (09:26)
[2017-05-09] MEDS: CARVEDILOL 12.5 MG TAB PO SCH ×2 (09:26→21:18)
[2017-05-09] MEDS: PANTOprazole SOD 40 MG TAB PO SCH (09:27)
[2017-05-09] MEDS: ASCORBIC ACID 500 MG TAB PO SCH (09:27)
[2017-05-09] MEDS: MULTIVITAMIN TAB PO SCH (09:27)
[2017-05-09] MEDS: VENLAFAXINE HCL XR 150 MG CAPXR PO SCH (09:27)
[2017-05-09] MEDS: LOSARTAN POTASSIUM 50 MG TAB PO SCH (09:27)
[2017-05-09] MEDS: EZETIMIBE 10MG TAB PO SCH (09:28)
[2017-05-09] MEDS: ISOSORBIDE MONONITRATE 30 MG TABCR PO SCH (09:28)
[2017-05-09] MEDS: ASPIRIN 81 MG ECTAB PO SCH (09:28)
[2017-05-09] MEDS: CLOPIDOGREL BISULFATE 75 MG TAB PO SCH (09:28)
[2017-05-09] MEDS: INSULIN GLARGINE SOLOSTAR 100 UNITS/ML 3 ML PEN SC SCH ×2 (09:40→21:13)
[2017-05-09] MEDS: INSULIN ASPART 100 UNITS/ML 3 ML PEN SC SCH ×4 (09:40→21:13)
[2017-05-09] MEDS: HEPARIN SOD 5000 UNIT/0.5 ML CARP SQ SCH ×2 (09:41→21:13)
[2017-05-09 10:03] LABS: BUN/CREATININE RATIO 11.7 (10-20); CALCIUM 8.6 mg/dl (8.5-10.1); CREATININE 2.42 mg/dl (0.60-1.20); POTASSIUM 3.8 mmol/L (3.5-5.1)
[2017-05-09 10:13] LABS: BETA-HYDROXYBUTYRATE 2.52 mg/dL (0.2-2.81)
--- NOTE | 2017-05-09 12:28 | Family Medicine Progress Note ---
Progress Note Date of Service May 09, 2017. Subjective Pt evaluation today including: conversation w/ patient, physical exam, chart review, lab review The patient was seen and examined at bedside. Pt received 20mg IV lasix in the ER. When examined pt states that she feels much better. Pt is on room oxygen which she is not at home. Patient is resting comfortably in bed. Reports increased urinary frequency - wouldn't mind a cathetor. Pt has never used compression stocking before for edema. Is willing to try. Plan of care was described to the patient and all questions were answered. ROS: +UE and LE edema. +SOB + Dyspnea on exertion. no chest pain, + Increased urinary frequency, no burning on urination, no rashes, no palpitations, no fevers, no chills, no nausea, no vomiting, no diarrhea, no dysuria, no constipation. Objective Physical Exam General Appearance: WD/WN, + obese Neck: supple, no adenopathy Respiratory/Chest: chest non-tender, lungs clear, normal breath sounds, no respiratory distress, no accessory muscle use Cardiovascular: regular rate, rhythm, no edema, no gallop, no JVD, no murmur Abdomen: normal bowel sounds, non tender, soft, no organomegaly, + pertinent finding (difficult to assess because of pt's increased body habitus) Extremities: + pertinent finding (2+ pitting edema over the upper and lower extremities bilaterally. LUE worse than the RUE 2/2 lymph node resection from her Breast Ca.) Neurologic/Psychiatric: promotions officer II-XII nml as tested, no motor/sensory deficits, alert, normal mood/affect, oriented x 3 Skin: no rash Assessment and Plan 62F with a PMHx of h/o CHF, Breast Ca s/p Left Lymph node section, CAD, ID s/p Stents, HLD, HTN, IDDM, ENE p/w with shortness of breath concerning for CHF exacerbation. Pt was also found to have an elevated blood sugar. BNP was 35, 000. New O2 requirement in hospital. Pt was admitted to telemetry. Cardiology consulted. Pt is edematous. TSH was also found to be 42. Willis + compression stocking put in place. Diuresis complicated by renal failure. Fluid overload may be related to CHF or hypothyroid state. Pt was started on Levoquin for UTI + Pneumonia. Acute on chronic systolic/diastolic CHF exacerbation: * BNP> 35,000, Last echo February 2016, EF of 45-50% with Grade 2 diastolic dysfunction. * Xray evidence of pulmonary congestion, possible RLL consolidation * IV Lasix 20mg given in ED * Daily IV lasix 40 QAM. * Thus far today pt has diuresis 800mls. * Hold torsemide PO * I/o, Fluid restriction, daily weights * Trops 0.026-->0.04-->6pm , Follow. * Echo today: Left ventricular ejection fraction approximately 35%. * Consult cardiology. Follows with Dr. Robbins. * Compression stockings on LE and UE edema (LUE edema is worse because she had lymph node removal from her Breast Ca). CAD s/p Stents + HTN * No symptoms of chest pain, pt's BP has been high. * Continue ASA 81mg daily, Plavix 75mg. * c/w COREG 12.5mg BID. * c/w Imdur QAM. * c/w Losartan 100mg daily. (If creatinine increases we will hold) UTI & Possible Pneumonia * U/a positive, bibasilar opacities on X-ray * Levoquin for UTI and Pneumonia, Day #1 * Follow up Urine Cultures (obtained after getting Rocephin in the ER) CKD stage 4, mild acute component * Baseline creatinine appears to be between 1.5-2.0. * Creatinine 2.39 today * We are diuresing so we will watch this number carefully. * BP meds include Coreg, Imdur and Losartan. Hypothyroid * TSH was 42, pt is supposed to be on Synthroid PO 200mcg. (Pt states she takes her Levothyroxine every day in the AM, without any other meds, and without food - she states that maybe her meds are since they are around 1 year old and she gets them from [facility]). * TSH in february of 2017- 1.5 * We will continue home dose Levothyroxine 200mcg daily. * Consider endocrine consult as outpatient. * Will order Free T4 and Free T3 in the AM. Hyperglycemia with ketonemia, h/o of iddm * Blood sugar was >500 on admission with ketonemia. * Lantus 20 units BID, Takes 43 units at night usually + Novolog goal 130-180, Carb ratio of 1:10 with sliding scale of 10 * Given extra 10units lantus, pt has poor PO intake. * HBA1C was 8 in February. * Will replete KCL 20meq tabs BID. * Monitor sugars and lytes. Sleep apnea * CPAP from home HLD * c/w Zetia (allergic to statins) Asthma * Albuterol + Advair PRN., Mood: c/w Effexor. GERD: c/w PPI PO daily. MSK: Will get PT and OT on board. DVT: Heparin BID SS: Good family support with and son, pt lives in [place] normally. Dispo: Continue on Tele. FULL CODE Resident Involvement: Resident Care Provided Care Provided: Adult Hospital Medicine Reviewed: Pt Seen/Exam by Me History breathing better compared to at the time of admission Constitutional: denies: fever Respiratory: positive: short of breath (better since admission) Cardiovascular: denies chest pain Gastrointestinal/Abdominal: negative: abdominal pain General Appearance: no apparent distress Respiratory: lungs clear, no respiratory distress Cardiovascular: regular rate, rhythm Gastrointestinal: soft Neurologic/Psychiatric: alert, oriented x 3 Skin Characteristics: warm/dry Assessment/Plan Resident Physician Supervision Note: I independently interviewed and examined the patient and verified the chaudhary history and physical, reviewed labs and image studies, discussed the case with the resident Dr. Suarez and agree with the findings and care plan.
[2017-05-09] MEDS ORDERED: INSULIN GLARGINE SOLOSTAR 100 UNITS/ML 3 ML PEN SC ONE (12:45)
--- NOTE | 2017-05-09 13:26 | ECHOCARDIOGRAM REPORT ---
*NOTICE TO RECEIVING [employer] This information is strictly Confidential and protected under [place] law. [place] law prohibits you from making any further disclosure of this information unless further disclosure is expressly permitted by the written consent of the person to whom it pertains or is authorized by law. A general authorization for the release of medical or other information is not sufficient for this purpose. Hospital accepts no responsibility if the information is made available to any other person, INCLUDING THE PATIENT. Interpretation Summary * Name: KRISTEN NAVA Study Date: 05/09/2017 07:21 AM BP: 188/90 mmHg * Patient Location: [facility] HR: 92 * : 1955 (M/d/yyyy) Gender: Female Height: 63 in * Age: 62 yrs Ethnicity: [place] Weight: 269 lb * Ordering Physician: Ernestine Nash * Referring Physician: Self, Referred * Performed By: Beny Farr RDCS * * Reason For Study: CHF * BSA: 2.2 m2 * -- Conclusions -- * Left ventricular systolic function is moderately reduced. * Akinetic segment involving the mid and distal anterior wall, anteroseptum, and the entire apex. * Left ventricular ejection fraction approximately 35%. * There is mild mitral regurgitation. * There is moderate tricuspid regurgitation. Procedure Details * A complete two-dimensional transthoracic echocardiogram was performed (2D, M-mode, Doppler and color flow Doppler). * The study was technically difficult. * A contrast injection of Definity was performed to improve assessment of LV function. * A contrast injection of Definity was performed to improve assessment for apical thrombus. * Contrast was injected into an intravenous site in the right arm. * One vial of Definity ultrasound contrast was diluted in normal saline to a total volume of 10 ml. A total of '5' ml of solution was administered during imaging. * Lot # [id number] of Definity utilized for procedure. * Expiration date . * The attending nurse who injected the contrast agent was GARRY Hoang. Left Ventricle * The left ventricle is mildly dilated. * There is no thrombus. * There is borderline concentric left ventricular hypertrophy. * Left ventricular systolic function is moderately reduced. * Left ventricular ejection fraction approximately 35%. * Akinetic segment involving the mid and distal anterior wall, anteroseptum, and the entire apex. Right Ventricle * The right ventricle is grossly normal size. Atria * The left atrium is mildly dilated. * Right atrium not well visualized. * There is no evidence of atrial septal defect, but resolution does not allow assessment for a patent foramen ovale. Mitral Valve * The mitral valve is grossly normal. * There is no mitral valve stenosis. * There is mild mitral regurgitation. Tricuspid Valve * The tricuspid valve is not well visualized, but is grossly normal. * There is no tricuspid stenosis. * There is moderate tricuspid regurgitation. * Right ventricular systolic pressure is elevated at 40-50mmHg. Aortic Valve * The aortic valve is trileaflet. * The aortic valve opens well. * Aortic valve sclerosis moderate, without significant aortic valvular stenosis. * There is no significant aortic regurgitation. Pulmonic Valve * The pulmonary valve is not well seen, but the Doppler examination is normal without significant regurgitation or stenosis. Great Vessels * The aortic root is normal size. * The pulmonary is not well visualized. Pericardium/Pleural * There is no pericardial effusion. Great Vessels * Dilated inferior vena cava with reduced collapsability with sniff indicates an elevated right atrial pressure of 15 mmHg MMode 2D Measurements and Calculations IVSd 1.3 cm IVSs 1.4 cm LVIDd 5.0 cm LVIDs 4.2 cm LVPWd 1.3 cm LVPWs 1.9 cm IVS/LVPW 1.0 FS 16.9 % EDV(Teich) 119.8 ml ESV(Teich) 77.5 ml EF(Teich) 35.3 % EDV(cubed) 127.1 ml ESV(cubed) 72.8 ml EF(cubed) 42.7 % % IVS thick 2.8 % % LVPW thick 45.0 % LV mass(C)d 271.0 grams LV mass(C)dI 123.6 grams/m\S\2 LV mass(C)s 284.1 grams LV mass(C)sI 129.5 grams/m\S\2 SV(Teich) 42.3 ml SI(Teich) 19.3 ml/m\S\2 SV(cubed) 54.3 ml SI(cubed) 24.7 ml/m\S\2 Ao root diam 2.8 cm Ao root area 6.3 cm\S\2 ACS 1.2 cm LA dimension 4.0 cm asc Aorta Diam 2.9 cm LA/Ao 1.4 LVOT diam 1.9 cm LVOT area 2.8 cm\S\2 LVAd ap4 26.8 cm\S\2 LVLd ap4 6.8 cm EDV(MOD-sp4) 87.0 ml LVAs ap4 22.0 cm\S\2 LVLs ap4 6.9 cm ESV(MOD-sp4) 56.7 ml EF(MOD-sp4) 34.8 % LVAd ap2 30.5 cm\S\2 LVLd ap2 7.5 cm EDV(MOD-sp2) 103.0 ml LVAs ap2 24.3 cm\S\2 LVLs ap2 7.8 cm ESV(MOD-sp2) 61.2 ml EF(MOD-sp2) 40.6 % SV(MOD-sp4) 30.3 ml SI(MOD-sp4) 13.8 ml/m\S\2 SV(MOD-sp2) 41.8 ml SI(MOD-sp2) 19.1 ml/m\S\2 Doppler Measurements and Calculations MV E max donaldo 115.1 cm/sec MV dec time 0.17 sec Ao V2 max 127.9 cm/sec Ao max PG 6.6 mmHg Ao max PG (full) 4.6 mmHg ALLY(V,A) 1.5 cm\S\2 ALLY(V,D) 1.5 cm\S\2 LV V1 max PG 2.0 mmHg LV V1 max 70.7 cm/sec PA V2 max 85.8 cm/sec PA max PG 2.9 mmHg PA acc slope 623.2 cm/sec\S\2 PA acc time 0.07 sec TR max donaldo 285.1 cm/sec PA pr(Accel) 45.7 mmHg
--- NOTE | 2017-05-09 13:41 | CARDIOLOGY CONSULTATION ---
DATE OF CONSULTATION: 05/09/2017 PERTINENT HISTORY: Mrs. Hodge is a 62-year-old white female with a complex past medical history, who was admitted yesterday with acute on chronic combined congestive heart failure. This consultation was ordered to assist in her management. Of note, the patient typically follows with Dr. Judd Franks the outpatient setting. The patient was in her usual state of health until several weeks prior to presentation. She began to note progressive exertional dyspnea and a 20-pound weight gain. She noticed an increase in her abdominal girth and her lower extremity edema. She was seen by Dr. Franks on the 04 of May and also had a recent appointment with Dr. Gutierrez. Adjustments have been made in her diuretic therapy; however, with an increase in diuretic dosing, her renal insufficiency worsens. Yesterday, the patient explains that she could not walk 5 steps because of her exertional dyspnea. Therefore, she presented to the Emergency Room for further care. The patient does not experience exertional angina pectoris. She further denies syncope, presyncope, and PND. She does sleep with a wedge under her pillow and has done so for several years. She is careful to follow a low salt diet. She does not follow with daily weights at home. Currently, the patient is resting comfortably in bed without complaints. PAST MEDICAL HISTORY: 1. Coronary artery disease. 2. Anterior myocardial infarction - July 2013 -- distal LAD disease -- medical management. 3. PDA drug-eluting stent -- July 2016 -- [place]. 4. LAD bare-metal stent -- July 2016 -- [place]. 5. Combined systolic and diastolic congestive heart failure. 6. Left ventricular ejection fraction of 45%-50%. 7. Ischemic cardiomyopathy. 8. Hypertension. 9. Left ventricular hypertrophy. 10. Hypercholesterolemia. 11. Diabetes mellitus. 12. Chronic renal failure. 13. GERD. 14. Hypothyroidism -- history of Froylan's thyroiditis. 15. Obesity. 16. Obstructive sleep apnea. 17. COPD. 18. Hysterectomy -- uterine carcinoma -- 2004. 19. Multiple abdominal surgeries -- fistula repair -- mesh implantation. 20. Bilateral mastectomies. 21. Abdominal muscular flap reconstructions. 22. Cholecystectomy. 23. Left rotator cuff surgery. 24. History of gastric sleeve. 25 Vitamin D deficiency. MEDICATIONS: 1. Carvedilol 12.5 mg b.i.d. 2. Imdur 30 mg per day. 3. Cozaar 100 mg daily. 4. Lasix 40 mg IV daily. 5. Zetia 10 mg per day. 6. Aspirin 81 mg per day. 7. Plavix 75 mg per day. 8. Heparin 5000 units subQ q. 12 hours. 9. Synthroid 0.2 mg daily. 10. Iron sulfate 325 mg per day. 11. Advair Diskus 500/50 one puff b.i.d. 12. Folic acid 1 mg per day. 13. Protonix 40 mg per day. 14. Effexor 150 mg per day. 15. Ditropan 50 mg daily. 16. Sliding scale insulin. ALLERGIES: 1. METFORMIN. 2. MORPHINE. 3. STATINS. 4. CONTRAST DYE. SOCIAL HISTORY: The patient is and lives with her . They live 6 months of the year in [place]. She stopped tobacco use in 2004. No alcohol. FAMILY HISTORY: No early coronary artery disease. REVIEW OF SYSTEMS: A 10-point review of systems is negative except for that described above. PHYSICAL EXAMINATION: GENERAL: This is an obese white female, seated at the bedside without complaints. VITAL SIGNS: Blood pressure is 150/77 with a regular pulse of 80. Respiratory rate is 16. The patient is afebrile at 36.7 degrees Celsius. Saturation is 99% on 2 liters nasal cannula. HEENT: Negative. NECK: Supple with full carotid upstrokes. There are no carotid bruits. Jugular venous pressure is difficult to assess. CARDIOVASCULAR: Reveals a regular rhythm with distant heart sounds. No obvious murmurs. No S3 or S4. LUNGS: Note distant breath sounds. No rales, rhonchi or wheezes. ABDOMEN: Obese without bruits. EXTREMITIES: Reveal intact radial artery pulses bilaterally. 1+ pretibial edema bilaterally. LABORATORY DATA: CBC notes hemoglobin of 10.9, hematocrit 36.7, white count 9.8, and platelet count 380,000. Electrolytes note a sodium of 141, potassium 3.8, chloride 106, bicarbonate 22, BUN 28, creatinine 2.4, and glucose 304. Troponin I level is normal at 0.026. BNP is elevated at greater than 35,000. TSH is elevated at 42. INR is 1.3. EKG notes sinus tachycardia with a left atrial abnormality and poor R-wave progression across the anterior precordium. Chest x-ray notes pulmonary edema. IMPRESSION: Mrs. Hodge was admitted in decompensated combined congestive heart failure. She has had a 20-pound weight gain in the last several weeks. She has already diuresed 3 kilograms since presented to the Emergency Room yesterday. Would continue with intravenous diuretics; however, her renal insufficiency will likely make her management difficult. We have discussed the importance of daily weights and sliding scale diuretics. PLAN: 1. Agree with intravenous diuresis. 2. Consider increasing carvedilol once she has improved. 3. Consider endocrinology consultation for elevated TSH. 4. Continue low salt diet. 5. Daily weights and sliding scale diuretics as an outpatient. 6. Dr. Franks will assume her care tomorrow. 7. Further recommendations depending on her clinical course. ELOISA
[2017-05-09] MEDS: ACETAMINOPHEN 325 MG TAB PO PRN ×2 (15:01→23:25)
[2017-05-09] MEDS ORDERED: NURSING VERBAL MED ORDER ONE (20:45)
[2017-05-09] MEDS: DiphenhydrAMINE HCL 12.5MG/5 ML UDC PO SCH ×2 (21:00→22:20)
[2017-05-09] MEDS: POTASSIUM CHLORIDE 20 MEQ TABCR PO SCH (21:18)
[2017-05-09] MEDS: FERROUS SULFATE 325 MG TAB PO SCH (21:18)
[2017-05-10] VITALS (8 sets, daily range): BP systolic 128–166; BP diastolic 76–88; PULSE 61–73; TEMP 36.4–37; O2SAT 93–100; Ht 160 cm; Wt 118.7 kg
[2017-05-10 04:21] LABS: HEMATOCRIT 33.9 % (37-47); MEAN CELL VOLUME 80.9 fL (80-100); MEAN CORPUSCULAR HEMOGLOBIN 24.1 pg (25-34); MEAN CORPUSCULAR HGB CONC 29.8 g/dl (32-36); MEAN PLATELET VOLUME 10.1 fL (7.4-10.4); PLATELET COUNT 331 K/uL (130-400); RED BLOOD COUNT 4.19 M/uL (4.2-5.4); WHITE BLOOD COUNT 8.86 K/uL (4.8-10.8)
[2017-05-10 04:40] LABS: BUN/CREATININE RATIO 12.5 (10-20); CALCIUM 8.2 mg/dl (8.5-10.1); CREATININE 2.48 mg/dl (0.60-1.20); POTASSIUM 3.9 mmol/L (3.5-5.1)
[2017-05-10 04:45] LABS: CHOLESTEROL/HDL RATIO 3.7
[2017-05-10] MEDS: LEVOTHYROXINE 200 MCG TAB PO SCH (05:55)
[2017-05-10] MEDS ORDERED: NURSING VERBAL MED ORDER ONE ×2 (07:30→20:30)
[2017-05-10 07:46] LABS: ESTIMATED AVERAGE GLUCOSE 203 mg/dl; HA1C FLAG Normal (Normal)
[2017-05-10] MEDS: INSULIN GLARGINE SOLOSTAR 100 UNITS/ML 3 ML PEN SC SCH ×2 (08:43→20:35)
[2017-05-10] MEDS: HEPARIN SOD 5000 UNIT/0.5 ML CARP SQ SCH ×2 (08:44→20:36)
[2017-05-10] MEDS: FLUTICASONE/SALMETEROL (ADVAIR) 500/50 INH 14 PUFF INH SCH ×2 (08:48→20:30)
[2017-05-10] MEDS: INSULIN ASPART 100 UNITS/ML 3 ML PEN SC SCH ×4 (08:48→20:35)
[2017-05-10] MEDS: FUROSEMIDE INJ 40 MG in SYRINGE 0 ML IV SCH (08:49)
[2017-05-10] MEDS: POTASSIUM CHLORIDE 20 MEQ TABCR PO SCH ×2 (08:49→20:32)
[2017-05-10] MEDS: MULTIVITAMIN TAB PO SCH (08:50)
[2017-05-10] MEDS: ASPIRIN 81 MG ECTAB PO SCH (08:51)
[2017-05-10] MEDS: ASCORBIC ACID 500 MG TAB PO SCH (08:51)
[2017-05-10] MEDS: DOCUSATE SODIUM 100 MG CAP PO SCH ×2 (08:52→20:27)
[2017-05-10] MEDS: CARVEDILOL 12.5 MG TAB PO SCH ×2 (08:52→20:32)
[2017-05-10] MEDS: LOSARTAN POTASSIUM 50 MG TAB PO SCH (08:53)
[2017-05-10] MEDS: VENLAFAXINE HCL XR 150 MG CAPXR PO SCH (08:53)
[2017-05-10] MEDS: ISOSORBIDE MONONITRATE 30 MG TABCR PO SCH (08:54)
[2017-05-10] MEDS: CLOPIDOGREL BISULFATE 75 MG TAB PO SCH (08:54)
[2017-05-10] MEDS: PANTOprazole SOD 40 MG TAB PO SCH (08:55)
[2017-05-10] MEDS: EZETIMIBE 10MG TAB PO SCH (08:56)
[2017-05-10] MEDS ORDERED: FUROSEMIDE INJ 40 MG in SYRINGE 0 ML IV SCH (09:00)
--- NOTE | 2017-05-10 12:38 | Family Medicine Progress Note ---
Progress Note Date of Service May 10, 2017. Subjective Pt evaluation today including: conversation w/ patient, physical exam, chart review, lab review Constitutional: No fever, No chills Eyes: No worsening of vision ENT: No hearing loss Respiratory: No cough, No sputum Cardiovascular: No chest pain, No orthopnea, No PND Abdomen: No pain, No nausea, No vomiting Female : No dysuria Psychiatric: No depression symptoms Endo: No fatigue Medications Current Inpatient Medications Medications (Trade) Dose Ordered Sig/Mahad Route Start Time Stop Time Status Last Admin Dose Admin Heparin Sodium (Porcine) (Heparin Sq 5000 Unit/0.5ml) 5,000 unit Q12 SQ 05/09/17 09:00 06/08/17 08:59 05/10/17 08:44 5,000 UNIT Acetaminophen (Tylenol Tab) 650 mg Q4H PRN PO 05/09/17 05:45 06/08/17 05:44 05/09/17 23:25 650 MG Al Hydrox/Mg Hydrox/Simethicone (Maalox Max Susp) 15 ml Q4H PRN PO 05/09/17 05:45 06/08/17 05:44 Magnesium Hydroxide (Milk Of Magnesia Susp) 30 ml Q12H PRN PO 05/09/17 05:45 06/08/17 05:44 Ondansetron HCl (Zofran Inj) 4 mg Q6H PRN IV 05/09/17 05:45 06/08/17 05:44 05/09/17 12:35 4 MG Nitroglycerin (Nitrostat Tab) 0.4 mg UD PRN SL 05/09/17 05:45 06/08/17 05:44 Polyethylene (Miralax Powder Packet) 17 gm DAILY PRN PO 05/09/17 05:45 06/08/17 05:44 Albuterol (Ventolin Hfa Inhaler) 1 puffs Q4 PRN INH 05/09/17 05:45 06/08/17 05:44 Albuterol Sulfate (Ventolin 0.083% 2.5MG/3ML Neb) 2.5 mg Q4 PRN INH 05/09/17 05:45 06/08/17 05:44 Ascorbic Acid (Vitamin C Tab) 500 mg DAILY PO 05/09/17 09:00 06/08/17 08:59 05/10/17 08:51 500 MG Aspirin (Ecotrin Tab) 81 mg DAILY PO 05/09/17 09:00 06/08/17 08:59 05/10/17 08:51 81 MG Calcium Carbonate (Tums Chew Tab) 1,000 mg Q4H PRN PO 05/09/17 05:45 06/08/17 05:44 Carvedilol (Coreg Tab) 12.5 mg BID PO 05/09/17 09:00 06/08/17 08:59 05/10/17 08:52 12.5 MG Clopidogrel Bisulfate (plAVix TAB) 75 mg DAILY PO 05/09/17 09:00 06/08/17 08:59 05/10/17 08:54 75 MG Docusate Sodium (coLACE CAP) 100 mg BID PO 05/09/17 09:00 06/08/17 08:59 05/10/17 08:52 100 MG EZETIMIBE (Zetia Tab) 10 mg DAILY PO 05/09/17 09:00 06/08/17 08:59 05/10/17 08:56 10 MG Salmeterol Xinafoate/ Fluticasone (Advair Diskus 500/50 Inh) 1 puff BID INH 05/09/17 09:00 06/08/17 08:59 05/10/17 08:48 1 PUFF Folic Acid (Folvite Tab) 1 mg DAILY PO 05/09/17 09:00 06/08/17 08:59 05/10/17 08:50 1 MG Isosorbide Mononitrate (Imdur Ext Rel Tab) 30 mg QAM PO 05/09/17 09:00 06/08/17 08:59 05/10/17 08:54 30 MG Levothyroxine Sodium (Synthroid Tab) 200 mcg DAILYBB PO 05/10/17 06:00 06/09/17 05:59 05/10/17 05:55 200 MCG Losartan Potassium (coZAAR TAB) 100 mg QAM PO 05/09/17 09:00 06/08/17 08:59 05/10/17 08:53 100 MG Multivitamins (Multivitamin Tab) 1 tab DAILY PO 05/09/17 09:00 06/08/17 08:59 05/10/17 08:50 1 TAB Pantoprazole Sodium (Protonix Tab) 40 mg DAILY PO 05/09/17 09:00 06/08/17 08:59 05/10/17 08:55 40 MG Venlafaxine HCl (effeXOR EXTENDED REL CAP) 150 mg QAM PO 05/09/17 09:00 06/08/17 08:59 05/10/17 08:53 150 MG Ferrous Sulfate (Feosol Tab) 325 mg HS PO 05/09/17 21:00 06/08/17 20:59 05/09/17 21:18 325 MG Oxybutynin Chloride (Ditropan-Xl Tab) 15 mg DAILY PO 05/09/17 09:00 06/08/17 08:59 Future Hold Levofloxacin 750 mg/Prmx 150 ml @ 100 mls/hr Q48H IV 05/09/17 08:00 05/19/17 07:59 05/09/17 08:19 100 MLS/HR Insulin Aspart (novoLOG ASPART) SLIDING SCALE G... ACHS SC 05/09/17 07:00 06/08/17 06:59 05/10/17 12:17 8 UNITS Insulin Glargine (Lantus Solostar Pen) 20 units BID SC 05/09/17 09:00 06/08/17 08:59 05/10/17 08:43 20 UNITS Furosemide 40 mg/ Syringe 4 ml @ 4 mls/min DAILY@09 IV 05/09/17 09:00 06/08/17 08:59 05/10/17 08:49 4 MLS/MIN Glucose (Glucose 40% Gel) 15-30 GRAMS 15 GRAMS... UD PRN PO 05/09/17 07:00 06/08/17 06:59 Glucose (Glucose Chew Tab) 4-8 Tablets 4 Tabl... UD PRN PO 05/09/17 07:00 06/08/17 06:59 Dextrose (Dextrose 50% 50ML Syringe) 25-50ML OF 50% DW IV FOR... UD PRN IV 05/09/17 07:00 06/08/17 06:59 Glucagon (Glucagon Inj) 1 mg UD PRN SQ 05/09/17 07:00 06/08/17 06:59 Potassium Chloride (Klor-Con Tab) 20 meq BID PO 05/09/17 21:00 06/08/17 20:59 05/10/17 08:49 20 MEQ Diphenhydramine HCl (Benadryl Syrup) 12.5 mg HS PO 05/09/17 21:00 06/08/17 20:59 05/09/17 22:20 12.5 MG Objective Vital Signs Date Time Temp Pulse Resp B/P (MAP) Pulse Ox O2 Delivery O2 Flow Rate FiO2 05/10/17 11:34 36.6 73 16 166/79 (108) 98 05/10/17 08:00 Room Air 05/10/17 07:47 36.7 64 18 161/88 (112) 96 CPAP 05/10/17 06:44 21 05/10/17 04:00 CPAP 05/10/17 03:37 66 20 143/79 (100) 98 CPAP 05/10/17 02:47 36.4 63 19 143/84 (103) 93 CPAP 05/10/17 00:00 100 CPAP 05/09/17 23:33 36.6 63 20 152/85 (107) 93 CPAP 05/09/17 20:00 100 Nasal Cannula 2.0 05/09/17 19:03 36.8 71 18 152/85 (107) 100 Nasal Cannula 2.0 05/09/17 16:00 Room Air 2.0 Nasal Cannula 05/09/17 15:12 36.8 69 19 146/83 (104) 99 Nasal Cannula 2.0 Physical Exam General Appearance: WD/WN, + obese Eyes: normal inspection Neck: supple Respiratory/Chest: lungs clear, normal breath sounds Cardiovascular: regular rate, rhythm Abdomen: non tender, soft Laboratory Results 05/10/17 04:08 05/10/17 04:08 Test 05/10/17 04:08 05/10/17 11:16 Red Blood Count 4.19 M/uL (4.2-5.4) Mean Corpuscular Volume 80.9 fL (80-100) Mean Corpuscular Hemoglobin 24.1 pg (25-34) Mean Corpuscular Hemoglobin Concent 29.8 g/dl (32-36) RDW Standard Deviation 50.1 fL (36.4-46.3) RDW Coefficient of Variation 17.1 % (11.5-14.5) Mean Platelet Volume 10.1 fL (7.4-10.4) Anion Gap 9.0 mmol/L (3-11) Est Creatinine Clear Calc Drug Dose 29.0 ml/min Estimated GFR () 23.2 Estimated GFR (Non- 20.0 BUN/Creatinine Ratio 12.5 (10-20) Estimated Average Glucose 203 mg/dl Hemoglobin A1c 8.7 % (4.5-5.6) Calcium Level 8.2 mg/dl (8.5-10.1) Troponin I 0.035 ng/ml (0-0.045) Triglycerides Level 99 mg/dl (0-150) Cholesterol Level 110 mg/dl (0-200) HDL Cholesterol 30 mg/dl LDL Cholesterol, Calculated 60 mg/dl VLDL Cholesterol, Calculated 20 mg/dl Cholesterol/HDL Ratio 3.7 Free Thyroxine 0.75 ng/dl (0.80-1.60) Free Triiodothyronine 1.40 pg/ml (2.30-4.20) Bedside Glucose 226 mg/dl (70-90) Assessment and Plan 62-year-old female with past medical history of CHF, coronary artery disease status post stent placement, hyperlipidemia, hypertension, diabetes type 2, sleep apnea presented with shortness of breath concerning for CHF exacerbation. Acute on chronic CHF exacerbation: - BNP was elevated at 35,000 - Echo 03/03 revealed an ejection fraction of 45-50% with grade 2 diastolic dysfunction, repeat echo revealed ejection fraction of 35% - Continue Lasix 40 mg daily - Continue to hold torsemide - Cardiology consulted - Daily weights with I's and O's Coronary artery disease status post stents: -Continue aspirin 81 mg and Plavix 75 mg, Imdur , losartan and Coreg UTI: - UA positive for nitrites, small leuk esterase - Urine culture currently pending - Continue Levaquin day 2 Acute kidney injury/ CKD stage IV - Likely secondary to renal congestion - Creatinine elevated at 2.4, baseline at 1.5-2 - Monitor creatinine levels, avoid nephrotoxins Hypothyroid - History of Froylan's thyroiditis- currently on Synthroid 200 g which the patient has been complaint using appropriately in the morning. TSH was elevated at 42, TSH in 03/04 at 1.5 - Free T3 at 1.4 and free T4 at 0.75 Patient stated that she had been using a different looking pill through [facility] for the last 3 months and received a new prescription recently. We'll continue the current dosage and recommend rechecking TSH in a few months - She is to follow up with her visual aid expert as an outpatient Type 2 diabetes: Hemoglobin A1c in February 2017 at 8 Blood sugars on admission> 500 Continue Lantus 20 units twice a day and insulin sliding scale Sleep apnea - Continue CPAP - Nocturnal pulse oximetry ordered Hyperlipidemia: - Continue Zetia, patient has not tolerated statins Asthma: - Continue albuterol and Advair Depression -continue Effexor: GERD: continue PPI DVT prophylaxis: Heparin twice a day Full code Resident Tracking Resident Involvement: Resident Care Provided Care Provided: Adult Hospital Medicine
--- NOTE | 2017-05-10 12:58 | Clinical Documentation Query ---
CLINICAL DOCUMENTATION QUERY Dr. TORRES, In your clinical opinion is this patient being managed for: ( x ) mild Acute kidney failure ( ) Not Agree ( ) Other explanation of clinical findings (Please Explain) ( ) Unable to determine (Please Define) ( ) Need to Discuss The medical record reflects the following clinical findings, treatment, and risk factors. Clinical Indicators:62 yo female presenting with acute CHF exacerbation, noted to have "CKD stage 4, mild acute component" per H/P. Treatment: monitor PRP's, treat comorbid conditions Risk Factors:acute CHF, DM, CAD, DC, obesity, necessary IV diuretic therapy Please clarify and document your clinical opinion in the progress notes and discharge summary. Terms such as "probable", "suspected", "likely", "questionable", "possible", or "still to be ruled out" are acceptable. IF IN AGREEMENT, YOU MUST DOCUMENT ABOVE DIAGNOSTIC STATEMENT IN DAILY PROGRESS NOTES AND DISCHARGE SUMMARY. This document is not part of the patient's record. Thank You, Cece Franks RN [phone]
[2017-05-10] MEDS: ACETAMINOPHEN 325 MG TAB PO PRN (20:22)
[2017-05-10] MEDS: DiphenhydrAMINE HCL 12.5MG/5 ML UDC PO SCH (20:27)
[2017-05-10] MEDS: FERROUS SULFATE 325 MG TAB PO SCH (20:31)
[2017-05-11 03:15] VITALS: BP 147/85; PULSE 66; TEMP 37; O2SAT 96
[2017-05-11] MEDS: LEVOTHYROXINE 200 MCG TAB PO SCH (05:42)
[2017-05-11 06:22] LABS: HEMATOCRIT 35.1 % (37-47); MEAN CELL VOLUME 80.9 fL (80-100); MEAN CORPUSCULAR HEMOGLOBIN 25.1 pg (25-34); MEAN CORPUSCULAR HGB CONC 31.1 g/dl (32-36); MEAN PLATELET VOLUME 10.4 fL (7.4-10.4); PLATELET COUNT 345 K/uL (130-400); RED BLOOD COUNT 4.34 M/uL (4.2-5.4); WHITE BLOOD COUNT 8.56 K/uL (4.8-10.8)
[2017-05-11 06:58] LABS: BUN/CREATININE RATIO 13.8 (10-20); CALCIUM 8.3 mg/dl (8.5-10.1); CREATININE 2.66 mg/dl (0.60-1.20)
[2017-05-11] MEDS: INSULIN ASPART 100 UNITS/ML 3 ML PEN SC SCH ×4 (07:00→20:42)
[2017-05-11 07:39] VITALS: BP 124/77; PULSE 64; TEMP 36.6; O2SAT 97
[2017-05-11] MEDS: FLUTICASONE/SALMETEROL (ADVAIR) 500/50 INH 14 PUFF INH SCH ×2 (08:26→20:49)
[2017-05-11] MEDS: LEVOFLOXACIN / D5W 750 MG in PREMIXED IN D5W 150 ML IV SCH (08:26)
[2017-05-11] MEDS: DOCUSATE SODIUM 100 MG CAP PO SCH ×2 (08:26→20:48)
[2017-05-11] MEDS: CARVEDILOL 12.5 MG TAB PO SCH ×2 (08:27→20:48)
[2017-05-11] MEDS: VENLAFAXINE HCL XR 150 MG CAPXR PO SCH (08:28)
[2017-05-11] MEDS: LOSARTAN POTASSIUM 50 MG TAB PO SCH (08:28)
[2017-05-11] MEDS: ASPIRIN 81 MG ECTAB PO SCH (08:28)
[2017-05-11] MEDS: PANTOprazole SOD 40 MG TAB PO SCH (08:30)
[2017-05-11] MEDS: ISOSORBIDE MONONITRATE 30 MG TABCR PO SCH (08:30)
[2017-05-11] MEDS: CLOPIDOGREL BISULFATE 75 MG TAB PO SCH (08:30)
[2017-05-11] MEDS: MULTIVITAMIN TAB PO SCH (08:30)
[2017-05-11] MEDS: ASCORBIC ACID 500 MG TAB PO SCH (08:31)
[2017-05-11] MEDS: EZETIMIBE 10MG TAB PO SCH (08:31)
[2017-05-11] MEDS: HEPARIN SOD 5000 UNIT/0.5 ML CARP SQ SCH ×2 (08:35→20:47)
[2017-05-11] MEDS: INSULIN GLARGINE SOLOSTAR 100 UNITS/ML 3 ML PEN SC SCH ×2 (08:36→20:48)
--- NOTE | 2017-05-11 10:28 | Family Medicine Progress Note ---
Progress Note Date of Service May 11, 2017. Subjective Pt evaluation today including: conversation w/ patient, physical exam, chart review, lab review 62-year-old female with past medical history of CHF, coronary artery disease status post stent placement, hyperlipidemia, hypertension, diabetes type 2, sleep apnea presented with shortness of breath concerning for CHF exacerbation. Stated that she was able to sleep flat last night without any shortness of breath and currently denies any shortness of breath at rest or any chest tightness. She reported getting out of breath while working with physical therapy yesterday. Complains of some heartburn today. Swelling in her legs has somewhat improved Constitutional: No fever, No chills Eyes: No worsening of vision ENT: No hearing loss Respiratory: No cough, No sputum Cardiovascular: + edema (bilateral pedal edema and left upper extremity edema), No chest pain, No palpitations Breast: No breast lump Abdomen: No pain, No nausea, No vomiting Musculoskeletal: No joint pain Female : + dysuria Neurologic: No memory loss Medications Current Inpatient Medications Medications (Trade) Dose Ordered Sig/Mahad Route Start Time Stop Time Status Last Admin Dose Admin Heparin Sodium (Porcine) (Heparin Sq 5000 Unit/0.5ml) 5,000 unit Q12 SQ 05/09/17 09:00 06/08/17 08:59 05/11/17 08:35 5,000 UNIT Acetaminophen (Tylenol Tab) 650 mg Q4H PRN PO 05/09/17 05:45 06/08/17 05:44 05/10/17 20:22 650 MG Al Hydrox/Mg Hydrox/Simethicone (Maalox Max Susp) 15 ml Q4H PRN PO 05/09/17 05:45 06/08/17 05:44 Magnesium Hydroxide (Milk Of Magnesia Susp) 30 ml Q12H PRN PO 05/09/17 05:45 06/08/17 05:44 Ondansetron HCl (Zofran Inj) 4 mg Q6H PRN IV 05/09/17 05:45 06/08/17 05:44 05/09/17 12:35 4 MG Nitroglycerin (Nitrostat Tab) 0.4 mg UD PRN SL 05/09/17 05:45 06/08/17 05:44 Polyethylene (Miralax Powder Packet) 17 gm DAILY PRN PO 05/09/17 05:45 06/08/17 05:44 Albuterol (Ventolin Hfa Inhaler) 1 puffs Q4 PRN INH 05/09/17 05:45 06/08/17 05:44 Albuterol Sulfate (Ventolin 0.083% 2.5MG/3ML Neb) 2.5 mg Q4 PRN INH 05/09/17 05:45 06/08/17 05:44 Ascorbic Acid (Vitamin C Tab) 500 mg DAILY PO 05/09/17 09:00 06/08/17 08:59 05/11/17 08:31 500 MG Aspirin (Ecotrin Tab) 81 mg DAILY PO 05/09/17 09:00 06/08/17 08:59 05/11/17 08:28 81 MG Calcium Carbonate (Tums Chew Tab) 1,000 mg Q4H PRN PO 05/09/17 05:45 06/08/17 05:44 Carvedilol (Coreg Tab) 12.5 mg BID PO 05/09/17 09:00 06/08/17 08:59 05/11/17 08:27 12.5 MG Clopidogrel Bisulfate (plAVix TAB) 75 mg DAILY PO 05/09/17 09:00 06/08/17 08:59 05/11/17 08:30 75 MG Docusate Sodium (coLACE CAP) 100 mg BID PO 05/09/17 09:00 06/08/17 08:59 05/11/17 08:26 100 MG EZETIMIBE (Zetia Tab) 10 mg DAILY PO 05/09/17 09:00 06/08/17 08:59 05/11/17 08:31 10 MG Salmeterol Xinafoate/ Fluticasone (Advair Diskus 500/50 Inh) 1 puff BID INH 05/09/17 09:00 06/08/17 08:59 05/11/17 08:26 1 PUFF Folic Acid (Folvite Tab) 1 mg DAILY PO 05/09/17 09:00 06/08/17 08:59 05/11/17 08:29 1 MG Isosorbide Mononitrate (Imdur Ext Rel Tab) 30 mg QAM PO 05/09/17 09:00 06/08/17 08:59 05/11/17 08:30 30 MG Levothyroxine Sodium (Synthroid Tab) 200 mcg DAILYBB PO 05/10/17 06:00 06/09/17 05:59 05/11/17 05:42 200 MCG Losartan Potassium (coZAAR TAB) 100 mg QAM PO 05/09/17 09:00 06/08/17 08:59 05/11/17 08:28 100 MG Multivitamins (Multivitamin Tab) 1 tab DAILY PO 05/09/17 09:00 06/08/17 08:59 05/11/17 08:30 1 TAB Pantoprazole Sodium (Protonix Tab) 40 mg DAILY PO 05/09/17 09:00 06/08/17 08:59 05/11/17 08:30 40 MG Venlafaxine HCl (effeXOR EXTENDED REL CAP) 150 mg QAM PO 05/09/17 09:00 06/08/17 08:59 05/11/17 08:28 150 MG Ferrous Sulfate (Feosol Tab) 325 mg HS PO 05/09/17 21:00 06/08/17 20:59 05/10/17 20:31 325 MG Oxybutynin Chloride (Ditropan-Xl Tab) 15 mg DAILY PO 05/09/17 09:00 06/08/17 08:59 Future Hold Levofloxacin 750 mg/Prmx 150 ml @ 100 mls/hr Q48H IV 05/09/17 08:00 05/19/17 07:59 05/11/17 08:26 100 MLS/HR Insulin Aspart (novoLOG ASPART) SLIDING SCALE G... ACHS SC 05/09/17 07:00 06/08/17 06:59 05/10/17 20:35 2 UNITS Insulin Glargine (Lantus Solostar Pen) 20 units BID SC 05/09/17 09:00 06/08/17 08:59 05/11/17 08:36 20 UNITS Furosemide 40 mg/ Syringe 4 ml @ 4 mls/min DAILY@09 IV 05/09/17 09:00 06/08/17 08:59 Future Hold 05/10/17 08:49 4 MLS/MIN Glucose (Glucose 40% Gel) 15-30 GRAMS 15 GRAMS... UD PRN PO 05/09/17 07:00 06/08/17 06:59 Glucose (Glucose Chew Tab) 4-8 Tablets 4 Tabl... UD PRN PO 05/09/17 07:00 06/08/17 06:59 Dextrose (Dextrose 50% 50ML Syringe) 25-50ML OF 50% DW IV FOR... UD PRN IV 05/09/17 07:00 06/08/17 06:59 Glucagon (Glucagon Inj) 1 mg UD PRN SQ 05/09/17 07:00 06/08/17 06:59 Diphenhydramine HCl (Benadryl Cap) 25 mg HS PO 05/11/17 21:00 06/10/17 20:59 Objective Vital Signs Date Time Temp Pulse Resp B/P (MAP) Pulse Ox O2 Delivery O2 Flow Rate FiO2 05/11/17 09:29 Room Air 05/11/17 07:39 36.6 64 18 124/77 (93) 97 Room Air 05/11/17 04:03 CPAP 05/11/17 03:15 37.0 66 18 147/85 (105) 96 CPAP 05/11/17 00:02 CPAP 05/10/17 23:40 37.0 70 17 144/84 (104) 97 CPAP 05/10/17 20:00 CPAP 05/10/17 19:08 36.8 71 18 156/84 (108) 97 Room Air 05/10/17 16:00 Room Air 05/10/17 16:00 Room Air 05/10/17 15:44 36.8 61 18 128/76 (93) 95 Room Air 05/10/17 12:00 Room Air 05/10/17 11:34 36.6 73 16 166/79 (108) 98 Physical Exam General Appearance: WD/WN, no apparent distress, + obese Eyes: normal inspection ENT: hearing grossly normal Neck: supple Respiratory/Chest: lungs clear, normal breath sounds Cardiovascular: regular rate, rhythm Abdomen: normal bowel sounds, non tender, soft Extremities: + pedal edema (bilaterally), + swelling (left upper extremity from lymphedema) Neurologic/Psychiatric: alert, normal mood/affect, oriented x 3 Skin: normal color Laboratory Results 05/11/17 05:52 05/11/17 05:52 Test 05/11/17 05:52 05/11/17 06:41 Red Blood Count 4.34 M/uL (4.2-5.4) Mean Corpuscular Volume 80.9 fL (80-100) Mean Corpuscular Hemoglobin 25.1 pg (25-34) Mean Corpuscular Hemoglobin Concent 31.1 g/dl (32-36) RDW Standard Deviation 50.4 fL (36.4-46.3) RDW Coefficient of Variation 17.2 % (11.5-14.5) Mean Platelet Volume 10.4 fL (7.4-10.4) Anion Gap 9.0 mmol/L (3-11) Est Creatinine Clear Calc Drug Dose 26.9 ml/min Estimated GFR () 21.3 Estimated GFR (Non- 18.4 BUN/Creatinine Ratio 13.8 (10-20) Calcium Level 8.3 mg/dl (8.5-10.1) Bedside Glucose 108 mg/dl (70-90) Assessment and Plan 62-year-old female with past medical history of CHF, coronary artery disease status post stent placement, hyperlipidemia, hypertension, diabetes type 2, sleep apnea presented with shortness of breath concerning for CHF exacerbation. Acute on chronic CHF exacerbation: - BNP was elevated at 35,000 - Echo 03/03 revealed an ejection fraction of 45-50% with grade 2 diastolic dysfunction, repeat echo revealed ejection fraction of 35%, akinetic segment involving the mid and distal anterior wall, anteroseptal and entire apex, Left ventricular systolic function is moderately reduced. - Continue IV Lasix 40 mg daily - Continue to hold torsemide - Cardiology consulted - Daily weights with I's and O's Coronary artery disease status post stents: -Continue aspirin 81 mg and Plavix 75 mg, Imdur , losartan and Coreg UTI: - UA positive for nitrites, small leuk esterase - Urine culture growing alpha strep - Continue Levaquin day 3 Acute kidney injury/ CKD stage IV - Likely secondary to renal congestion - Creatinine elevated at 2.6, baseline at 1.5-2 - Monitor creatinine levels, avoid nephrotoxins - nephrology consult Hypothyroid - History of Froylan's thyroiditis- currently on Synthroid 200 g which the patient has been complaint using appropriately in the morning. TSH was elevated at 42, TSH in 03/04 at 1.5 - Free T3 at 1.4 and free T4 at 0.75 Patient stated that she had been using a different looking pill through [facility] for the last 3 months and received a new prescription recently. We'll continue the current dosage and recommend rechecking TSH in a few months - She is to follow up with her bank messenger as an outpatient Type 2 diabetes: Hemoglobin A1c in February 2017 at 8 Blood sugars on admission> 500 Continue Lantus 20 units twice a day and insulin sliding scale Sleep apnea - Continue CPAP Hyperlipidemia: - Continue Zetia, patient has not tolerated statins Asthma: - Continue albuterol and Advair Depression -continue Effexor: GERD: continue PPI DVT prophylaxis: Heparin twice a day Full code Resident Tracking Resident Involvement: Resident Care Provided Care Provided: Adult Hospital Medicine
[2017-05-11] MEDS ORDERED: BENZOCAINE 20% (ORAJEL) 11.9 GM TUBE MT PRN (10:30)
[2017-05-11 10:35] VITALS: BP 152/92; PULSE 74; TEMP 36.6; O2SAT 95
--- NOTE | 2017-05-11 11:02 | Cardiology Follow-Up ---
Subjective Date of Service: May 11, 2017. Pt evaluation today including: conversation w/ patient, physical exam, chart review, lab review, review of studies, conversation w/ attending History of Present Illness Mrs. Hodge is a 62-year-old white female with a history of CAD s/p anterior IL July 2013, deployment of two intracoronary stents July 2016 (details unknown), ischemic cardiomyopathy, morbid obesity, type 2 diabetes, hypertension , hypercholesterolemia, CKD, asthma / COPD, hypothyroidism, and osteoarthritis who was admitted to [facility] on 05/08/17 with acute CHF. She reports feeling significantly better today. Her shortness of breath has improved but is not quite back to baseline. Yesterday when ambulating the halls with PT she experienced limiting dyspnea but has not ambulated yet today. She reports that she slept "great" last night. It was the first night that she was able to sleep flat without symptoms of orthopnea or PND. She feels her lower extremity edema has improved. She denies chest pain, palpitations, lightheadedness, presyncope or syncope. No cerebrovascular complaints. No abnormal bleeding. She will be leaving for [place] in 3 weeks and follows with a pediatric hospitalist there. Her diuretics are currently on hold due to an increase her in serum creatinine. An echocardiogram performed on 05/09/17 demonstrates moderately reduced LV systolic function (EF 35%). Akinetic segment involving the mid and distal anterior wall, anteroseptum and entire apex. Mild mitral regurgitation. Moderate tricuspid regurgitation. The remainder of her review of systems is unremarkable. Social History Smoking Status: Never Smoker History of Alcohol Use: No Objective Vital Signs Past 12 Hours Date Time Temp Pulse Resp B/P (MAP) Pulse Ox O2 Delivery O2 Flow Rate FiO2 05/11/17 09:29 Room Air 05/11/17 07:39 36.6 64 18 124/77 (93) 97 Room Air 05/11/17 04:03 CPAP 05/11/17 03:15 37.0 66 18 147/85 (105) 96 CPAP 05/11/17 00:02 CPAP 05/10/17 23:40 37.0 70 17 144/84 (104) 97 CPAP Last Recorded Weight-Kilograms: 118.400 Physical Exam General: Obese. Alert and oriented x3. No acute distress. HEENT: Head is normal. PERRLA. EOMI. Sclera anicteric. Ears, nose and throat unremarkable. Neck: No appreciable JVD but difficult to assess given neck size. No carotid bruit. Lungs: Decreased breath sounds throughout but clear without rales, rhonchi or wheezing. Cardiac: Regular rate and rhythm. S1 and S2 normal. No obvious murmur, gallop or rub. Abdomen: Obese. Nontender. Bowel sounds present. No abdominal bruit. Extremities: No cyanosis or clubbing. Support stockings in place. Trace to 1+ pedal and pretibial edema bilaterally. Peripheral pulses intact. Neuro: No lateralizing changes. Data Laboratory Results: Last 24 Hours Test 05/10/17 11:16 05/10/17 16:31 05/10/17 20:28 05/11/17 05:52 Bedside Glucose 226 mg/dl 148 mg/dl 173 mg/dl White Blood Count 8.56 K/uL Red Blood Count 4.34 M/uL Hemoglobin 10.9 g/dL Hematocrit 35.1 % Mean Corpuscular Volume 80.9 fL Mean Corpuscular Hemoglobin 25.1 pg Mean Corpuscular Hemoglobin Concent 31.1 g/dl RDW Standard Deviation 50.4 fL RDW Coefficient of Variation 17.2 % Platelet Count 345 K/uL Mean Platelet Volume 10.4 fL Sodium Level 139 mmol/L Potassium Level 4.0 mmol/L Chloride Level 103 mmol/L Carbon Dioxide Level 27 mmol/L Anion Gap 9.0 mmol/L Blood Urea Nitrogen 37 mg/dl Creatinine 2.66 mg/dl Est Creatinine Clear Calc Drug Dose 26.9 ml/min Estimated GFR () 21.3 Estimated GFR (Non- 18.4 BUN/Creatinine Ratio 13.8 Random Glucose 100 mg/dl Calcium Level 8.3 mg/dl Test 05/11/17 06:41 Bedside Glucose 108 mg/dl Imaging: Chest xray 05/09/17 with interstitial edema. Electrocardiogram 05/10/17: Appears to have arm lead reversal. Normal sinus rhythm at 66 bpm. Anterolateral infarct. Telemetry reviewed: Sinus rhythm without arrhythmia or pause. Assessment and Plan Discussed with Dr. Robbins. 1. Acute on chronic combined systolic and diastolic CHF: Patient's volume status seems to be improving significantly. She is feeling much better symptomatically today. She has a negative fluid balance and has diuresed about 4 kg. Her diuretics are currently on hold due to an elevation in her serum creatinine. Recommend she be discharged on daily diuretic with close monitoring of her renal function. Recommend low sodium diet (less than 2000 mg daily). Continue daily weights. Patient is already scheduled to be seen in HF clinic on 05/17/17. 2. Ischemic cardiomyopathy: Echocardiogram demonstrates a reduction in her left ventricular systolic function from 45-50% to now about 35%. Recommend continuing guideline based medical therapy for her cardiomyopathy. Continue losartan 100 mg daily. Recommend titrating carvedilol to 25 mg BID prior to discharge. If her LV function does not improve with optimized medical therapy consider ICD placement which can be discussed further as outpatient. 3. Coronary artery disease: status post anterior IL July 2013 and deployment of two intracoronary stents July 2016 (details unknown). No anginal type symptoms. Troponin very mildly elevated on 05/11/17 at 0.048 and has trended back down. No ischemic changes on electrocardiogram. Continue medical therapy with ASA, Plavix, beta sandor, NABEEL inhibitor, Imdur and statin. The patient was seen by me in conjunction with Ms. Landeros. Her heart failure and volume overload has improved with diuresis. This however is resulted in an increase in her BUN and creatinine. She is tolerating current dose of carvedilol well. Agree of above assessment and recommendations. Hold off on diuretic therapy today. Increase carvedilol dose. If her LV ejection fraction does not improve she may be candidate for ICD placement for primary prevention. S she will be returning to [place] in a few weeks this may be better addressed by her pediatric hospitalist in [place].
[2017-05-11 15:16] VITALS: BP 148/86; PULSE 69; TEMP 37; O2SAT 93
--- NOTE | 2017-05-11 17:03 | Nephrology Consultation ---
Nephrology Consultation Date & Providers Date of Consultation: May 11, 2017. Primary Care Provider: Judd Baez M.D. Referring Provider: Reason for Consultation Evaluation of acute on chronic kidney injury History of Present Illness Mrs. Hodge is a 62 year old white female who is seen at the request of Dr. Hurt for evaluation of acute on chronic kidney injury. Medical records in the hospital EMR were reviewed today and are summarized as follows: Mrs. Hodge has stage IV CKD (advanced impairment). Her L kidney is atrophic and nonfunctional. She has diabetic nephropathy. Her baseline creatinine has been 2.0 - 2.2 w/ EGFR ~ 25 cc/min. Her medical history is also significant for HTN , obesity (BMI 43), AODM w/ retinopathy, remote h/o tobacco use, h/o breast/ ovarian/uterine CA, dilation of urethral stricture complicated by urinary incontinence and recurrent UTI. Mrs. Hodge also has a h/o hyperlipidemia and ASCVD. She required cardiac stenting x 2 in 08/04. Mrs. Hodge reports that over the last week she has experienced progessive weight gain and exertional edema. She presented to the [facility] ED where CXR revealed CHF and urine culture was + for infection. Troponin was mildly elevated. Mrs. Hodge was admitted for IV diuretic therapy. Since admission she has diuresed 1500 cc and weight has dropped 1 kg. Mrs. Hodge reports that her breathing is subjectively improved. Creatinine has risen to 2.6 with diuretic therapy. Echocardiogram reveals LVEF has dropped to 35% and patient has evidence of pulmonary HTN w/ moderate TR. Past Medical/Surgical History Medical: # CKD stage IV (advanced impairment). Baseline creatinine 2.0 - 2.3 w/ EGFR ~ 25 cc/min # Atrophic L kidney # HTN # Obesity w/ BMI 43 # AODM w/ retinopathy # remote h/o tobacco use # h/o breast/ovarian/uterine CA # L arm lymphedema # Dilation of urethral stricture complicated by urinary incontinence and recurrent UTI # Hyperlipidemia # ASCVD s/p PTCA w/ stent x 2 in 08/04 Allergies Coded Allergies: Metformin (Verified Allergy, Unknown, per PCP records , 05/09/17) Iodinated Diagnostic Agents (Verified Adverse Reaction, Intermediate, HIVES, 05/09/17) TOLERATES WITH BENDADRYL Statins (Verified Adverse Reaction, Intermediate, Muscle weakness, ) Morphine (Verified Adverse Reaction, Mild, ITCHING, 05/09/17) Inpatient Medications Current Inpatient Medications Medications (Trade) Dose Ordered Sig/Mahad Route Start Time Stop Time Status Last Admin Dose Admin Heparin Sodium (Porcine) (Heparin Sq 5000 Unit/0.5ml) 5,000 unit Q12 SQ 05/09/17 09:00 06/08/17 08:59 05/11/17 08:35 5,000 UNIT Acetaminophen (Tylenol Tab) 650 mg Q4H PRN PO 05/09/17 05:45 06/08/17 05:44 05/10/17 20:22 650 MG Al Hydrox/Mg Hydrox/Simethicone (Maalox Max Susp) 15 ml Q4H PRN PO 05/09/17 05:45 06/08/17 05:44 Magnesium Hydroxide (Milk Of Magnesia Susp) 30 ml Q12H PRN PO 05/09/17 05:45 06/08/17 05:44 Ondansetron HCl (Zofran Inj) 4 mg Q6H PRN IV 05/09/17 05:45 06/08/17 05:44 05/09/17 12:35 4 MG Nitroglycerin (Nitrostat Tab) 0.4 mg UD PRN SL 05/09/17 05:45 06/08/17 05:44 Polyethylene (Miralax Powder Packet) 17 gm DAILY PRN PO 05/09/17 05:45 06/08/17 05:44 Albuterol (Ventolin Hfa Inhaler) 1 puffs Q4 PRN INH 05/09/17 05:45 06/08/17 05:44 Albuterol Sulfate (Ventolin 0.083% 2.5MG/3ML Neb) 2.5 mg Q4 PRN INH 05/09/17 05:45 06/08/17 05:44 Ascorbic Acid (Vitamin C Tab) 500 mg DAILY PO 05/09/17 09:00 06/08/17 08:59 05/11/17 08:31 500 MG Aspirin (Ecotrin Tab) 81 mg DAILY PO 05/09/17 09:00 06/08/17 08:59 05/11/17 08:28 81 MG Calcium Carbonate (Tums Chew Tab) 1,000 mg Q4H PRN PO 05/09/17 05:45 06/08/17 05:44 Carvedilol (Coreg Tab) 12.5 mg BID PO 05/09/17 09:00 06/08/17 08:59 05/11/17 08:27 12.5 MG Clopidogrel Bisulfate (plAVix TAB) 75 mg DAILY PO 05/09/17 09:00 06/08/17 08:59 05/11/17 08:30 75 MG Docusate Sodium (coLACE CAP) 100 mg BID PO 05/09/17 09:00 06/08/17 08:59 05/11/17 08:26 100 MG EZETIMIBE (Zetia Tab) 10 mg DAILY PO 05/09/17 09:00 06/08/17 08:59 05/11/17 08:31 10 MG Salmeterol Xinafoate/ Fluticasone (Advair Diskus 500/50 Inh) 1 puff BID INH 05/09/17 09:00 06/08/17 08:59 05/11/17 08:26 1 PUFF Folic Acid (Folvite Tab) 1 mg DAILY PO 05/09/17 09:00 06/08/17 08:59 05/11/17 08:29 1 MG Isosorbide Mononitrate (Imdur Ext Rel Tab) 30 mg QAM PO 05/09/17 09:00 06/08/17 08:59 05/11/17 08:30 30 MG Levothyroxine Sodium (Synthroid Tab) 200 mcg DAILYBB PO 05/10/17 06:00 06/09/17 05:59 05/11/17 05:42 200 MCG Losartan Potassium (coZAAR TAB) 100 mg QAM PO 05/09/17 09:00 06/08/17 08:59 05/11/17 08:28 100 MG Multivitamins (Multivitamin Tab) 1 tab DAILY PO 05/09/17 09:00 06/08/17 08:59 05/11/17 08:30 1 TAB Pantoprazole Sodium (Protonix Tab) 40 mg DAILY PO 05/09/17 09:00 06/08/17 08:59 05/11/17 08:30 40 MG Venlafaxine HCl (effeXOR EXTENDED REL CAP) 150 mg QAM PO 05/09/17 09:00 06/08/17 08:59 05/11/17 08:28 150 MG Ferrous Sulfate (Feosol Tab) 325 mg HS PO 05/09/17 21:00 06/08/17 20:59 05/10/17 20:31 325 MG Oxybutynin Chloride (Ditropan-Xl Tab) 15 mg DAILY PO 05/09/17 09:00 06/08/17 08:59 Future Hold Insulin Aspart (novoLOG ASPART) SLIDING SCALE G... ACHS SC 05/09/17 07:00 06/08/17 06:59 05/11/17 12:10 8 UNITS Insulin Glargine (Lantus Solostar Pen) 20 units BID SC 05/09/17 09:00 06/08/17 08:59 05/11/17 08:36 20 UNITS Furosemide 40 mg/ Syringe 4 ml @ 4 mls/min DAILY@09 IV 05/09/17 09:00 06/08/17 08:59 Future Hold 05/10/17 08:49 4 MLS/MIN Glucose (Glucose 40% Gel) 15-30 GRAMS 15 GRAMS... UD PRN PO 05/09/17 07:00 06/08/17 06:59 Glucose (Glucose Chew Tab) 4-8 Tablets 4 Tabl... UD PRN PO 05/09/17 07:00 06/08/17 06:59 Dextrose (Dextrose 50% 50ML Syringe) 25-50ML OF 50% DW IV FOR... UD PRN IV 05/09/17 07:00 06/08/17 06:59 Glucagon (Glucagon Inj) 1 mg UD PRN SQ 05/09/17 07:00 06/08/17 06:59 Diphenhydramine HCl (Benadryl Cap) 25 mg HS PO 05/11/17 21:00 06/10/17 20:59 Benzocaine (Orajel 20% Oral Gel) 1 appln QID PRN MT 05/11/17 10:30 06/10/17 10:29 Levofloxacin (Levaquin Tab) 750 mg Q2D@1100 PO 05/13/17 11:00 05/19/17 10:59 Family History Diabetes mellitus FH: cancer FH: gallbladder disease Hypertension Kidney disease Kidney stones Sister w/ advanced CKD nearing need for HD Social History Smoking Status: Never Smoker Smokeless Tobacco Use: No Alcohol Use: none Drug Use: none Marital Status: Housing Status: lives with family 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 She and her have a mobile home and live in [place] November through May of each year to attend [employer] football games. Former smoker (quit 2000). Denies alcohol use. Review of Systems Constitutional: No fever Respiratory: + dyspnea on exertion Cardiovascular: No chest pain Abdomen: No pain, No nausea, No vomiting Genitourinary - Female: + dysuria Endocrine: + fatigue A complete review of systems was performed. Pertinent positives are noted above. All other systems are negative. Physical Exam Date Time Temp Pulse Resp B/P (MAP) Pulse Ox O2 Delivery O2 Flow Rate FiO2 05/11/17 15:16 37.0 69 18 148/86 (106) 93 05/11/17 10:35 36.6 74 20 152/92 (112) 95 Room Air 05/11/17 09:29 Room Air 05/11/17 07:39 36.6 64 18 124/77 (93) 97 Room Air 05/11/17 04:03 CPAP 05/11/17 03:15 37.0 66 18 147/85 (105) 96 CPAP 05/11/17 00:02 CPAP 05/10/17 23:40 37.0 70 17 144/84 (104) 97 CPAP 05/10/17 20:00 CPAP 05/10/17 19:08 36.8 71 18 156/84 (108) 97 Room Air General Appearance: no apparent distress Head: normocephalic, atraumatic Eyes: PERRL, EOMI Neck: no adenopathy Respiratory/Chest: lungs clear Cardiovascular: regular rate, rhythm Abdomen/GI: normal bowel sounds, non tender, soft Genitourinary - Female: + pertinent finding (kearney catheter in place draining clear yellow urine) Extremities/Musculoskelatal: + pertinent finding (trace pretibial edema) Neurologic/Psych: alert, oriented x 3 Laboratory Results Last 24 Hours Test 05/10/17 16:31 05/10/17 20:28 05/11/17 05:52 05/11/17 06:41 Bedside Glucose 148 mg/dl 173 mg/dl 108 mg/dl White Blood Count 8.56 K/uL Red Blood Count 4.34 M/uL Hemoglobin 10.9 g/dL Hematocrit 35.1 % Mean Corpuscular Volume 80.9 fL Mean Corpuscular Hemoglobin 25.1 pg Mean Corpuscular Hemoglobin Concent 31.1 g/dl RDW Standard Deviation 50.4 fL RDW Coefficient of Variation 17.2 % Platelet Count 345 K/uL Mean Platelet Volume 10.4 fL Sodium Level 139 mmol/L Potassium Level 4.0 mmol/L Chloride Level 103 mmol/L Carbon Dioxide Level 27 mmol/L Anion Gap 9.0 mmol/L Blood Urea Nitrogen 37 mg/dl Creatinine 2.66 mg/dl Est Creatinine Clear Calc Drug Dose 26.9 ml/min Estimated GFR () 21.3 Estimated GFR (Non- 18.4 BUN/Creatinine Ratio 13.8 Random Glucose 100 mg/dl Calcium Level 8.3 mg/dl Test 05/11/17 11:55 Bedside Glucose 240 mg/dl Impression (1) [id number] kidney injury (2) Chronic kidney disease, stage 4 (severe) (3) Atrophy of left kidney (4) CHF exacerbation (5) UTI (urinary tract infection) (6) HYPERTENSION NOS (7) DIAB TONEY WO COMPL, TYPE II OR UNSPEC TYPE, UNCONTROLLED Recommendations Patient has cardiorenal syndrome. She was admitted with biventricular heart failure and has required intravenous diuretic therapy. She has had a net 1500 cc diuresis and weight has dropped 1 kg. Patient is symptomatically improved. Creatinine has increased to 2.6 and diuretics have been held. Recommend continuing ARB for afterload reduction. Consider titration of Carvedilol. Will request dietary consultation to provide education on a low sodium diet. When discharge is anticipated patient will need to resume a loop diuretic. Prefer Torsemide for improved bioavailability and prolonged half life. Discussed the diagnosis of CHF and worsening kidney function w/ patient and her today. Indications and benefits to HD vascular access creation reviewed in detail. Patient voiced understanding. She and her are preparing to return home to [place]. She does not yet have an established relationship with a [employer] at home. I called her PCP this afternoon (Dr. [place] Martinez [phone]) and reviewed her plan of care. Dr. Martinez will coordinate follow up with Cardiology and Nephrology when patient returns home to [place]. She will help expedite referral for AVF creation. 90 minute visit provided to the patient today. This was necessary to review her medical record, perform physical exam and help coordinate post hospital care at home in [place]. Over 50% of time provided was spent on education and coordination of care.
[2017-05-11 18:45] VITALS: BP 155/92; PULSE 76; TEMP 36.5; O2SAT 95
[2017-05-11] MEDS: FERROUS SULFATE 325 MG TAB PO SCH (20:48)
[2017-05-12] VITALS (10 sets, daily range): BP systolic 128–170; BP diastolic 67–110; PULSE 67–76; TEMP 36.6–36.9; O2SAT 95–99
[2017-05-12] MEDS: CALCIUM CARBONATE 500 MG CHEWABLE PO PRN ×2 (00:10→05:54)
[2017-05-12] MEDS: LEVOTHYROXINE 200 MCG TAB PO SCH (05:49)
[2017-05-12 06:51] LABS: HEMATOCRIT 37.8 % (37-47); MEAN CELL VOLUME 80.9 fL (80-100); MEAN CORPUSCULAR HEMOGLOBIN 24.4 pg (25-34); MEAN CORPUSCULAR HGB CONC 30.2 g/dl (32-36); MEAN PLATELET VOLUME 9.8 fL (7.4-10.4); PLATELET COUNT 353 K/uL (130-400); RED BLOOD COUNT 4.67 M/uL (4.2-5.4); WHITE BLOOD COUNT 8.54 K/uL (4.8-10.8)
[2017-05-12] MEDS: INSULIN ASPART 100 UNITS/ML 3 ML PEN SC SCH ×3 (07:00→16:15)
[2017-05-12 07:21] LABS: BUN/CREATININE RATIO 13.4 (10-20); CALCIUM 8.4 mg/dl (8.5-10.1); CREATININE 2.59 mg/dl (0.60-1.20); POTASSIUM 3.8 mmol/L (3.5-5.1)
[2017-05-12] MEDS: INSULIN GLARGINE SOLOSTAR 100 UNITS/ML 3 ML PEN SC SCH (08:30)
[2017-05-12] MEDS: DOCUSATE SODIUM 100 MG CAP PO SCH (08:30)
[2017-05-12] MEDS: CLOPIDOGREL BISULFATE 75 MG TAB PO SCH (08:30)
[2017-05-12] MEDS: PANTOprazole SOD 40 MG TAB PO SCH (08:31)
[2017-05-12] MEDS: EZETIMIBE 10MG TAB PO SCH (08:31)
[2017-05-12] MEDS: CARVEDILOL 12.5 MG TAB PO SCH (08:31)
[2017-05-12] MEDS: ASPIRIN 81 MG ECTAB PO SCH (08:31)
[2017-05-12] MEDS: MULTIVITAMIN TAB PO SCH (08:31)
[2017-05-12] MEDS: LOSARTAN POTASSIUM 50 MG TAB PO SCH (08:31)
[2017-05-12] MEDS: ASCORBIC ACID 500 MG TAB PO SCH (08:31)
[2017-05-12] MEDS: ISOSORBIDE MONONITRATE 30 MG TABCR PO SCH (08:31)
[2017-05-12] MEDS: FLUTICASONE/SALMETEROL (ADVAIR) 500/50 INH 14 PUFF INH SCH (08:32)
[2017-05-12] MEDS: VENLAFAXINE HCL XR 150 MG CAPXR PO SCH (08:32)
[2017-05-12] MEDS: HEPARIN SOD 5000 UNIT/0.5 ML CARP SQ SCH (08:33)
[2017-05-12] MEDS ORDERED: CARVEDILOL 12.5 MG TAB PO SCH (09:00)
--- NOTE | 2017-05-12 10:16 | Nephrology Progress Note ---
Nephrology Progress Note Date of Service May 12, 2017. Chief Complaint Evaluation of acute on chronic kidney injury Subjective Mrs. Hodge was seen & examined in the PCU this morning. She is breathing comfortably on room air. She is wearing lower extremity compression stockings and has been able to ambulate on her own. Mrs. Hodge is tolerating her diet. She is awaiting low sodium diet education from the dietitian. Mrs. Hodge met with Cardiology earlier this morning. She hopes to be discharged home soon. Review of Systems Constitutional: No fever Cardiovascular: No chest pain Respiratory: No dyspnea at rest Abdomen: No pain, No nausea, No vomiting Extremities: + leg edema A complete review of systems was performed. Pertinent positives are noted above. All other systems are negative. Vital Signs Last 8 Hrs Date Time Temp Pulse Resp B/P (MAP) Pulse Ox O2 Delivery O2 Flow Rate FiO2 05/12/17 08:00 95 Room Air 05/12/17 07:50 36.6 75 20 170/110 (130) 95 Room Air 05/12/17 04:19 36.9 72 20 142/92 (109) 97 CPAP 05/12/17 04:00 BiPAP Last Recorded Weight Weight (Kilograms): 118.700 Physical Exam General Appearance: no apparent distress Head: normocephalic, atraumatic Eyes: PERRL, EOMI Neck: no adenopathy Respiratory/Chest: lungs clear, no respiratory distress Cardiovascular: regular rate, rhythm Abdomen/GI: normal bowel sounds, non tender, soft Extremities/Musculoskelatal: + pedal edema (wears compression stockings) Neurologic/Psych: alert, oriented x 3 Family History Diabetes mellitus FH: cancer FH: gallbladder disease Hypertension Kidney disease Kidney stones Sister w/ advanced CKD nearing need for HD Social History Smoking Status: Former smoker Smokeless Tobacco Use: No Alcohol Use: none Drug Use: none Marital Status: Housing Status: lives with family 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 She and her have a mobile home and live in [place] November through May of each year to attend [employer] football games. Former smoker (quit 2000). Denies alcohol use. Laboratory Results Past 24 Hours 05/12/17 06:33 05/12/17 06:33 Test 05/11/17 11:55 05/11/17 15:56 05/11/17 20:41 05/12/17 06:33 Bedside Glucose 240 mg/dl (70-90) 193 mg/dl (70-90) 156 mg/dl (70-90) Red Blood Count 4.67 M/uL (4.2-5.4) Mean Corpuscular Volume 80.9 fL (80-100) Mean Corpuscular Hemoglobin 24.4 pg (25-34) Mean Corpuscular Hemoglobin Concent 30.2 g/dl (32-36) RDW Standard Deviation 50.4 fL (36.4-46.3) RDW Coefficient of Variation 17.4 % (11.5-14.5) Mean Platelet Volume 9.8 fL (7.4-10.4) Anion Gap 7.0 mmol/L (3-11) Est Creatinine Clear Calc Drug Dose 27.7 ml/min Estimated GFR () 22.0 Estimated GFR (Non- 19.0 BUN/Creatinine Ratio 13.4 (10-20) Calcium Level 8.4 mg/dl (8.5-10.1) Allergies Coded Allergies: Metformin (Verified Allergy, Unknown, per PCP records , 05/09/17) Iodinated Diagnostic Agents (Verified Adverse Reaction, Intermediate, HIVES, 05/09/17) TOLERATES WITH BENDADRYL Statins (Verified Adverse Reaction, Intermediate, Muscle weakness, ) Morphine (Verified Adverse Reaction, Mild, ITCHING, 05/09/17) Medications Current Inpatient Medications Medications (Trade) Dose Ordered Sig/Mahad Route Start Time Stop Time Status Last Admin Dose Admin Heparin Sodium (Porcine) (Heparin Sq 5000 Unit/0.5ml) 5,000 unit Q12 SQ 05/09/17 09:00 06/08/17 08:59 05/12/17 08:33 5,000 UNIT Acetaminophen (Tylenol Tab) 650 mg Q4H PRN PO 05/09/17 05:45 06/08/17 05:44 05/10/17 20:22 650 MG Al Hydrox/Mg Hydrox/Simethicone (Maalox Max Susp) 15 ml Q4H PRN PO 05/09/17 05:45 06/08/17 05:44 Magnesium Hydroxide (Milk Of Magnesia Susp) 30 ml Q12H PRN PO 05/09/17 05:45 06/08/17 05:44 Ondansetron HCl (Zofran Inj) 4 mg Q6H PRN IV 05/09/17 05:45 06/08/17 05:44 05/09/17 12:35 4 MG Nitroglycerin (Nitrostat Tab) 0.4 mg UD PRN SL 05/09/17 05:45 06/08/17 05:44 Polyethylene (Miralax Powder Packet) 17 gm DAILY PRN PO 05/09/17 05:45 06/08/17 05:44 Albuterol (Ventolin Hfa Inhaler) 1 puffs Q4 PRN INH 05/09/17 05:45 06/08/17 05:44 Albuterol Sulfate (Ventolin 0.083% 2.5MG/3ML Neb) 2.5 mg Q4 PRN INH 05/09/17 05:45 06/08/17 05:44 Ascorbic Acid (Vitamin C Tab) 500 mg DAILY PO 05/09/17 09:00 06/08/17 08:59 05/12/17 08:31 500 MG Aspirin (Ecotrin Tab) 81 mg DAILY PO 05/09/17 09:00 06/08/17 08:59 05/12/17 08:31 81 MG Calcium Carbonate (Tums Chew Tab) 1,000 mg Q4H PRN PO 05/09/17 05:45 06/08/17 05:44 05/12/17 05:54 1,000 MG Clopidogrel Bisulfate (plAVix TAB) 75 mg DAILY PO 05/09/17 09:00 06/08/17 08:59 05/12/17 08:30 75 MG Docusate Sodium (coLACE CAP) 100 mg BID PO 05/09/17 09:00 06/08/17 08:59 05/12/17 08:30 100 MG EZETIMIBE (Zetia Tab) 10 mg DAILY PO 05/09/17 09:00 06/08/17 08:59 05/12/17 08:31 10 MG Salmeterol Xinafoate/ Fluticasone (Advair Diskus 500/50 Inh) 1 puff BID INH 05/09/17 09:00 06/08/17 08:59 05/12/17 08:32 1 PUFF Folic Acid (Folvite Tab) 1 mg DAILY PO 05/09/17 09:00 06/08/17 08:59 05/12/17 08:31 1 MG Isosorbide Mononitrate (Imdur Ext Rel Tab) 30 mg QAM PO 05/09/17 09:00 06/08/17 08:59 05/12/17 08:31 30 MG Levothyroxine Sodium (Synthroid Tab) 200 mcg DAILYBB PO 05/10/17 06:00 06/09/17 05:59 05/12/17 05:49 200 MCG Losartan Potassium (coZAAR TAB) 100 mg QAM PO 05/09/17 09:00 06/08/17 08:59 05/12/17 08:31 100 MG Multivitamins (Multivitamin Tab) 1 tab DAILY PO 05/09/17 09:00 06/08/17 08:59 05/12/17 08:31 1 TAB Pantoprazole Sodium (Protonix Tab) 40 mg DAILY PO 05/09/17 09:00 06/08/17 08:59 05/12/17 08:31 40 MG Venlafaxine HCl (effeXOR EXTENDED REL CAP) 150 mg QAM PO 05/09/17 09:00 06/08/17 08:59 05/12/17 08:32 150 MG Ferrous Sulfate (Feosol Tab) 325 mg HS PO 05/09/17 21:00 06/08/17 20:59 05/11/17 20:48 325 MG Oxybutynin Chloride (Ditropan-Xl Tab) 15 mg DAILY PO 05/09/17 09:00 06/08/17 08:59 Future Hold Insulin Aspart (novoLOG ASPART) SLIDING SCALE G... ACHS SC 05/09/17 07:00 06/08/17 06:59 05/11/17 17:52 9 UNITS Insulin Glargine (Lantus Solostar Pen) 20 units BID SC 05/09/17 09:00 06/08/17 08:59 05/12/17 08:30 20 UNITS Furosemide 40 mg/ Syringe 4 ml @ 4 mls/min DAILY@09 IV 05/09/17 09:00 06/08/17 08:59 Future Hold 05/10/17 08:49 4 MLS/MIN Glucose (Glucose 40% Gel) 15-30 GRAMS 15 GRAMS... UD PRN PO 05/09/17 07:00 11/21/17 06:59 Glucose (Glucose Chew Tab) 4-8 Tablets 4 Tabl... UD PRN PO 05/09/17 07:00 06/08/17 06:59 Dextrose (Dextrose 50% 50ML Syringe) 25-50ML OF 50% DW IV FOR... UD PRN IV 05/09/17 07:00 06/08/17 06:59 Glucagon (Glucagon Inj) 1 mg UD PRN SQ 05/09/17 07:00 06/08/17 06:59 Diphenhydramine HCl (Benadryl Cap) 25 mg HS PO 05/11/17 21:00 06/10/17 20:59 05/11/17 20:49 25 MG Benzocaine (Orajel 20% Oral Gel) 1 appln QID PRN MT 05/11/17 10:30 06/10/17 10:29 05/11/17 18:25 1 APPLN Levofloxacin (Levaquin Tab) 750 mg Q2D@1100 PO 05/13/17 11:00 05/19/17 10:59 Carvedilol (Coreg Tab) 18.75 mg BID PO 05/12/17 09:00 06/08/17 08:59 05/12/17 09:44 18.75 MG Impression (1) [id number] kidney injury (2) Chronic kidney disease, stage 4 (severe) (3) Atrophy of left kidney (4) CHF exacerbation (5) UTI (urinary tract infection) (6) HYPERTENSION NOS (7) DIAB TONEY WO COMPL, TYPE II OR UNSPEC TYPE, UNCONTROLLED Recommendations -- I&O stable overnight. Creatinine stable at 2.6. L kidney is atrophic and nonfunctional -- Volume status and electrolyte balance are acceptable this am. Patient is breathing easily on RA. Lungs are CTA on physical exam -- Recommend resuming Torsemide 20 mg daily -- Patient is scheduled for Nephrology reevaluation 05/20/17. I have ordered nonfasting blood work 24 hours prior to her OV. -- Mrs. Hodge plans to return to [place] in early May. Yesterday I spoke with patient's PCP Dr. [place] Martinez in [place], [place] and provided a medical update. She will arrange Nephrology follow up and AVF creation when patient returns to [place].
[2017-05-12] MEDS ORDERED: TORS20TA2 PO (16:00)
[2017-05-12] MEDS ORDERED: LVQ750 PO (16:08)
--- NOTE | 2017-05-12 16:08 | Discharge Instructions ---
Discharge Instructions Date of Service May 12, 2017. Admission Reason for Admission: Chf Exacerbation, Hyperglycemia, Uti Discharge Discharge Diagnosis / Problem: CHF exacerbation Discharge Goals Goal(s): Decrease discomfort, Improve function Activity Recommendations Activity Limitations: resume your previous activity . Instructions / Follow-Up Instructions / Follow-Up You were admitted with shortness of breath and fatigue concerning for a CHF exacerbation. Recommendations CHF exacerbation: An admission your BNP was elevated at 35,000 and an echo revealed an ejection fraction of 35% which was decreased from 45-50% from February 2016 Cardiology was consulted and initially started on IV Lasix. Recommend to use torsemide 20 mg daily. Follow-up with cardiology as scheduled Coronary artery disease status post stents: -Continue aspirin 81 mg and Plavix 75 mg, Imdur , losartan and Coreg UTI: -Continue to use Levaquin 750 mg every other day for for extra doses Acute kidney injury/ CKD stage IV -Continue to use torsemide 20 mg daily - Follow up with Dr. Gutierrez as scheduled Hypothyroid TSH was elevated at 42, TSH in 03/04 at 1.5 - Free T3 at 1.4 and free T4 at 0.75 Continue to use the current dosage of levothyroxine but you will need to follow up with your PCP for rechecking a TSH and free T3/T4 levels and it might need to be adjusted Type 2 diabetes: Hemoglobin A1c in February 2017 at 8 Continue Lantus 20 units twice a day and insulin sliding scale Sleep apnea - Continue CPAP Hyperlipidemia: - Continue Zetia Asthma: - Continue albuterol and Advair Depression -continue Effexor: GERD: continue PPI Follow-up with your PCP in about a week. Follow-up with Dr. Gutierrez on May 20 as scheduled Follow up with cardiology as scheduled Current Hospital Diet Patient's current hospital diet: AHA Diet (Heart Healthy), Low Sodium Diet (2gm Na), Diabetes Type 2 Diet Discharge Diet Recommended Diet: AHA Diet (Heart Healthy), Low Sodium Diet (2gm Na), Diabetes Type 2 Diet Pending Studies Studies pending at discharge: no Laboratory Results Hemoglobin A1c Test 05/10/17 04:08 Range/Units Estimated Average Glucose 203 mg/dl Hemoglobin A1c 8.7 H 4.5-5.6 % Lipid Panel Test 05/10/17 04:08 Range/Units Triglycerides Level 99 0-150 mg/dl Cholesterol Level 110 0-200 mg/dl HDL Cholesterol 30 mg/dl Cholesterol/HDL Ratio 3.7 LDL Cholesterol, Calculated 60 mg/dl Medical Emergencies . Who to Call and When: Medical Emergencies: If at any time you feel your situation is an emergency, please call 911 immediately. . Non-Emergent Contact Non-Emergency issues call your: Primary Care Provider . . "Provider Documentation" section prepared by Tomasa Burr. . Enterprise Application Analyst Recommendations Enterprise Application Analyst Recommendations: Nephrology: Recommend resuming Torsemide 20 mg daily -- Patient is scheduled for Nephrology reevaluation 05/20/17. I have ordered nonfasting blood work 24 hours prior to her OV. VTE Core Measure Inpt VTE Proph given/why not?: Unfractionated heparin SQ
--- NOTE | 2017-05-12 16:53 | Discharge Summary ---
Discharge Summary Date of Service May 12, 2017. Discharge Summary Admission Date: May 09, 2017 at 05:48 Discharge Date: May 12, 2017 Discharge Disposition: Home Principal Diagnosis: CHF exacerbation Problems/Secondary Diagnoses: Chronic kidney disease, COPD, hyperglycemia, lymphedema of left upper extremity Immunizations: Have You Had Influenza Vaccine: No History of Tetanus Vaccine?: Yes Tetanus Immunization Date: Mar 30, 2004 History of Pneumococcal: No History of Hepatitis B Vaccine: No Consultations: Cardiology, nephrology. Medication Reconciliation New Medications: Levofloxacin (Levofloxacin) 750 Mg Tab 750 MG PO Q2D@1100, #4 TAB Changed Medications: Torsemide (Demadex) 20 Mg Tab 20 MG PO DAILY for 30 Days (Changed from: Q2D) Continued Medications: Albuterol Hfa (Ventolin Hfa) 200 Puffs/30438 Mcg Aers 1-2 PUFFS INH Q4 PRN for SOB/Wheezing, #1 INHALER Albuterol Sulf (Proventil 0.083% 2.5MG/3ML) 2.5 Mg/3 Ml Nebu 2.5 MG INH Q4 PRN for SOB/Wheezing, EA Ascorbic Acid (Vitamin C) 500 Mg Tab 500 MG PO DAILY Aspirin (Aspirin Ec) 81 Mg Tab 81 MG PO DAILY Calcium Carbonate (Tums) 500 Mg Chew 2 TAB PO UD PRN for Heartburn Carvedilol (Coreg) 12.5 Mg Tab 12.5 MG PO BID, TAB Clopidogrel (Plavix) 75 Mg Tab 75 MG PO DAILY, TAB Docusate Sodium (Docusate Sodium) 100 Mg Cap 1 CAP PO BID, CAP Ergocalciferol (Vitamin D 31908 Unit) 50,000 Unit Cap 08913 UNIT PO WK, CAP MONDAYS-AM Ezetimibe (Zetia) 10 Mg Tab 10 MG PO DAILY, TAB Ferrous Sulfate (Ferrous Sulfate) 325 Mg Tab 325 MG PO HS Fluticasone Prop/Salmeterol (Advair Diskus 500/50 60 Dose) 1 Ea Aerp 1 PUFF INH BID, INHALER Folic Acid (Folvite) 1 Mg Tab 1 MG PO DAILY, TAB Insulin Aspart (Novolog Flexpen) 100 Units/Ml Inj 15 UNITS SQ TIDM and as per sliding scale if bsg >150 Insulin Glargine (Lantus Solostar) 100 Unit/Ml Inj 46 UNITS SC QPM, PEN Isosorbide Mononitrate Ext Rel (Imdur Ext Rel) 30 Mg Tabcr 1 TAB PO QAM, TAB Levothyroxine Sodium (Synthroid) 200 Mcg Tab 200 MCG PO 6XWK, TAB EXCEPT SUNDAYS-AM Losartan Potassium (Cozaar) 100 Mg Tab 100 MG PO QAM, TAB Multivitamin (Multivitamin) Tab 1 TAB PO DAILY, TAB Nitroglycerin (Nitrostat) 0.4 Mg Tab 0.4 MG UT UD PRN for Chest Pain Oxybutynin Chloride (Oxybutynin Chloride Er) 15 Mg Tab 1 TAB PO DAILY, TAB 3 Refills Pantoprazole (Protonix) 40 Mg Tab 40 MG PO DAILY, #30 TAB Tramadol/Acetaminophen (Ultracet) 37.5 Mg/325 Mg Tab 1 TAB PO q4-6hrs PRN for Pain for 30 Days, TAB Venlafaxine Hcl (Venlafaxine Hcl Er) 150 Mg Tab 150 MG PO QAM Discharge Exam Feeling a lot better today. Denies any shortness of breath at rest or with exertion. Denies any orthopnea, paroxysmal nocturnal dyspnea, chest pain or palpitations. Willis catheter was discontinued and she does not have any trouble voiding after. Review of Systems: Constitutional: No fever, No chills Eyes: No worsening of vision ENT: No hearing loss Respiratory: No cough, No sputum Cardiovascular: + edema (bilateral lower edema), No chest pain, No orthopnea , No PND Abdomen: No pain, No nausea Musculoskeletal: No joint pain Genitourinary - Female: No dysuria, No urinary frequency Neurologic: No memory loss Psychiatric: No depression symptoms Endocrine: No fatigue Hematologic / Lymphatic: No abnormal bleeding/bruising Physical Exam: General Appearance: WD/WN, no apparent distress, + obese Eyes: normal inspection ENT: hearing grossly normal Neck: supple Respiratory/Chest: lungs clear, normal breath sounds, no respiratory distress Cardiovascular: regular rate, rhythm Abdomen / GI: non tender, soft Extremities: + pedal edema (trace), + swelling (left upper extremity) Neurologic/Psychiatric: alert, normal mood/affect, oriented x 3 Skin: normal color Hospital Course 62-year-old female with past medical history of CHF, coronary artery disease status post stent placement, hyperlipidemia, hypertension, diabetes type 2, sleep apnea presented with shortness of breath and chest pain for about 1-2 weeks. She also reported a 20 pound weight gain in the last 2 weeks and worsening dyspnea by walking 5 steps. Her BNP on admission was elevated at 35,000 . Echo 03/03 revealed an ejection fraction of 45-50% with grade 2 diastolic dysfunction, repeat echo 05/10/17 revealed ejection fraction of 35%, akinetic segment involving the mid and distal anterior wall, anteroseptal and entire apex, Left ventricular systolic function is moderately reduced. -Cardiology was consulted which recommended continuing torsemide. She is to follow up with cardiology for discharge and continue aspirin, Plavix, Imdur, losartan and Coreg for coronary artery disease. Urinary tract infection - UA positive for nitrites, small leuk esterase - Urine culture growing alpha strep -Levaquin 750 mg to be used for 4 more doses every other day. Acute kidney injury/ CKD stage IV - Creatinine elevated at 2.6, baseline at 1.5-2, nephrology was consulted who recommended torsemide 20 mg daily and follow-up on 05/20/17. They also discussed potential need for hemodialysis and her PCP was updated Hypothyroid - History of Froylan's thyroiditis- currently on Synthroid 200 g which the patient has been complaint using appropriately in the morning. TSH was elevated at 42, TSH in 03/04 at 1.5 - Free T3 at 1.4 and free T4 at 0.75 Patient stated that she had been using a different looking pill through [facility] for the last 3 months and received a new prescription recently. She was recommended to continue the current dosage of Synthroid. Recheck TSH, free T3 and T4 in a few months and adjust Synthroid dosage appropriately Type 2 diabetes: Hemoglobin A1c in February 2017 at 8 Continue Lantus 20 units twice a day and insulin sliding scale Sleep apnea - Continue CPAP Hyperlipidemia: - Continue Zetia, patient has not tolerated statins Asthma: - Continue albuterol and Advair Depression -continue Effexor: GERD: continue PPI Follow-up with nephrology, cardiology as scheduled. Follow-up with PCP in about a week. Total Time Spent: Greater than 30 minutes This includes examination of the patient, discharge planning, medication reconciliation, and communication with other providers. Discharge Instructions Please refer to the electronic Patient Visit Report (Discharge Instructions) for additional information. Follow-Up Follow-up with nephrology on 05/20/17. Follow-up with cardiology on 05/17/17 Resident Tracking Resident Involvement: Resident Care Provided Care Provided: [facility]
--- NOTE | 2017-05-12 20:50 | PROGRESS NOTE ---
DATE: 05/12/2017 HISTORY: The patient was seen by me this morning in the telemetry unit room. She states that she slept well overnight. No orthopnea or PND. She denies any dyspnea walking around her room. No palpitations, lightheadedness, or syncope. Her peripheral edema by her account has significantly decreased since admission. No fevers or chills. No pulmonary complaints. No GI complaints. No neurologic type complaints. ADDENDUM TO THE HISTORY: The patient denies any of her typical anginal type chest discomfort. She states that this is usually a left parasternal pressure. Overnight, she did have a few episodes of a lower mid, retrosternal, localized aching pain. She states that this is a chronic complaint. The intensity is not increased with exertion. The episodes can last from seconds to minutes. In the past, she has had no relief of this discomfort with sublingual nitroglycerin. MEDICATIONS: Medications this morning were carvedilol 12.5 mg b.i.d., aspirin 81 mg daily, vitamin C 500 mg daily, subQ heparin 5000 units q. 12 hours, ferrous sulfate 325 mg at bedtime, levothyroxine 200 mcg daily, diphenhydramine 25 mg at bedtime, levofloxacin 750 mg every 2 days, clopidogrel 75 mg daily, docusate sodium 100 mg b.i.d., Zetia 10 mg daily, Advair Diskus 1 puff b.i.d., folic acid 1 mg daily, isosorbide mononitrate 30 mg daily, losartan 100 mg daily, multivitamin 1 daily, pantoprazole 40 mg daily, Effexor 150 mg daily, Ditropan XL 15 mg daily, Lantus insulin 20 units subQ b.i.d., and several p.r.n. medications. OBJECTIVE: VITAL SIGNS: This morning revealed oral temperature 36.6, pulse 75, blood pressure 170/110, pulse oximetry on room air 95%. NECK: Difficult to evaluate jugular venous pressure secondary to neck size. There does not appear to be any jugular venous distension. GENERAL APPEARANCE: Shows her to be in no distress. LUNGS: Normal respiratory effort. Slight decreased breath sounds at both bases. No rales or wheezes. HEART: Regular rate and rhythm. S1, S2 normal. No S3 or S4. No murmur or rub. ABDOMEN: Soft. Nontender. No palpable masses or organomegaly. No bruits. Normal bowel sounds. EXTREMITIES: She has compression socks on both legs. Trace to 1+ pretibial edema bilaterally. No calf tenderness. NEUROLOGIC: Alert and oriented x3. Motor grossly intact. PSYCHIATRIC: Affect is normal. LABORATORY DATA: This morning with WBC 8.54, hemoglobin 11.4, hematocrit 37.8, platelet count 353, sodium 142, potassium 3.8, chloride 106, carbon dioxide 29, BUN 35, creatinine 2.59, random glucose 85. Echocardiogram on this admission with LV ejection fraction 35%. ASSESSMENT: 1. Ischemic cardiomyopathy. 2. Acute on chronic systolic heart failure. Her heart failure has significantly improved since admission with diuresis. 3. Hypertension. Blood pressure significantly elevated this morning. 4. No significant arrhythmias noted on monitor. 5. Chronic kidney disease. BUN and creatinine have improved from yesterday. The BUN and creatinine had increased after diuresis. 6. Improved peripheral edema with diuresis. RECOMMENDATIONS: 1. Increase carvedilol to 18.75 mg b.i.d. If she tolerates this well, ultimately increase to 25 mg b.i.d. 2. Continue other cardiac medications. 3. Consider discharging patient home today. Resume her torsemide with daily dosing schedule. On admission, she had been on torsemide 20 mg every other day. 4. The patient already has cardiology clinic and nephrology clinic followup visits arranged for early next week. If she tolerates the 18.75 mg b.i.d. dose of carvedilol well in the interim, the dose can be increased to 25 mg b.i.d. at the time of her cardiology followup visit. 5. Repeat renal function next week. 6. Continue losartan, aspirin, clopidogrel, and isosorbide mononitrate.
[2017-05-13] MEDS ORDERED: LEVOFLOXACIN 750 MG TAB PO SCH (11:00)
[2017-05-13 12:51] LABS: FREE KAPPA/LAMBDA RATIO 1.13 (0.26-1.65); FREE LAMBDA 38.2 MG/L (5.7-26.3)
== END 2017-05-12 17:52 | disposition home or self-care (01) | DRG 291 ==
LOC: C.EDB 02:29 → C.2T 05:48 → ENRESERV 05:54
PROVIDERS: ADMIT Student in an Organized Health Care Education/Training Program; ATTEND Hospitalist
DX: I13.0 Hypertensive heart and chronic kidney disease with heart failure and stage 1 through stage 4 chronic kidney disease, or unspecified chronic kidney disease (principal); J18.9 Pneumonia, unspecified organism; N39.0 Urinary tract infection, site not specified; N18.4 Chronic kidney disease, stage 4 (severe); N17.9 Acute kidney failure, unspecified; Z68.41 Body mass index [BMI] 40.0-44.9, adult; E11.9 Type 2 diabetes mellitus without complications; E03.9 Hypothyroidism, unspecified; I25.10 Atherosclerotic heart disease of native coronary artery without angina pectoris; I25.2 Old myocardial infarction; Z90.49 Acquired absence of other specified parts of digestive tract; G47.33 Obstructive sleep apnea (adult) (pediatric); E66.01 Morbid (severe) obesity due to excess calories; Z79.82 Long term (current) use of aspirin; Z79.4 Long term (current) use of insulin; Z87.440 Personal history of urinary (tract) infections; Z83.3 Family history of diabetes mellitus; Z80.9 Family history of malignant neoplasm, unspecified; Z84.1 Family history of disorders of kidney and ureter

== ENCOUNTER → 2017-05-14 | Outpatient (CLI) | payer OTHER ==
[~2017-05-14] MED LIST changes: +ADVIN50/60 INH; +ALBINS/ INH; -ALBU1AER9 INH; +ASCA500 PO; +ASPI81TA28 PO; +CLOP1TAB15 PO; -CMD/25 PO; -CMD5 PO; -CYAN500T PO; +DOCU100C31 PO; +EZET10TA63 PO; +FERR1TAB62 PO; -FERR325T PO; +FOLI1TAB7 PO; -HYDR-3983 PO; -IMD/2 PO; +INSDGIPEN SC; -INSUINJ14 SC; -INSUINJ4 SQ; +ISOS30TA35 PO; +LOSA100T65 PO; +LVQ750 PO; +MULT-506 PO; -NRN300 PO; +NVLGI/PEN SQ; -OMEP20CA59 PO; +OXYB15TA PO; -OXYB15TA12 PO; +PANT40TA PO; -TELM80TA4 PO; +TORS20TA2 PO; +TRAMTAB5 PO; +VNTHFA/IN INH
[2017-05-14 12:05] LABS: HEMATOCRIT 36.4 % (37-47); MEAN CELL VOLUME 81.3 fL (80-100); MEAN CORPUSCULAR HEMOGLOBIN 23.9 pg (25-34); MEAN CORPUSCULAR HGB CONC 29.4 g/dl (32-36); MEAN PLATELET VOLUME 9.9 fL (7.4-10.4); PLATELET COUNT 343 K/uL (130-400); RED BLOOD COUNT 4.48 M/uL (4.2-5.4)
[2017-05-14 12:22] LABS: ALT/SGPT 26 U/L (12-78); AST/SGOT 18 U/L (15-37); BLOOD UREA NITROGEN 37 mg/dl (7-18); BUN/CREATININE RATIO 16.1 (10-20); CALCIUM 8.2 mg/dl (8.5-10.1); CARBON DIOXIDE 23 mmol/L (21-32); CHLORIDE 106 mmol/L (98-107); GLUCOSE 105 mg/dl (70-99); POTASSIUM 4.1 mmol/L (3.5-5.1); SODIUM 140 mmol/L (136-145)
[2017-05-14 12:25] LABS: ALB/GLOB RATIO 0.9 (0.9-2); ALKALINE PHOSPHATASE 91 U/L (45-117)
== END | disposition home or self-care (01) ==
LOC: C.LABBFT 09:42
PROVIDERS: ATTEND Internal Medicine Nephrology
DX: R79.89 Other specified abnormal findings of blood chemistry (principal); I12.9 Hypertensive chronic kidney disease with stage 1 through stage 4 chronic kidney disease, or unspecified chronic kidney disease; E11.22 Type 2 diabetes mellitus with diabetic chronic kidney disease; N18.3 Chronic kidney disease, stage 3 (moderate); E55.9 Vitamin D deficiency, unspecified